=== PATIENT | female | born 1965 | race African-American/Black ===

== ENCOUNTER 2018-05-11 08:29 | Inpatient (IN) ==
[2018-05-11] MEDS ORDERED: ONDANSETRON 4 MG/2 ML VIAL IV STA (09:14)
[2018-05-11] MEDS ORDERED: ALBUTEROL/IPRATROPIUM 3 ML NEB RESP TX STA (09:14)
[2018-05-11] MEDS ORDERED: LOPERAMIDE 2 MG CAPSULE PO STA (09:14)
[2018-05-11] MEDS ORDERED: PANTOPRAZOLE 40 MG VIAL IV STA (09:14)
[2018-05-11] MEDS ORDERED: METOCLOPRAMIDE 10 MG/2 ML VIAL IV STA (09:14)
[2018-05-11 09:52] LABS: Basophils % 0.2 % (0.0-0.8); Eosinophils % 0.1 % (0.00-10.9); Immature Granulocytes % 7.9 %; Immature Granulocytes Absolute 1.19 #; Lymphocytes # 1.3 10*3/uL (1.4-4.0); Lymphocytes % 8.4 % (21.3-54.2); Mean Corpuscular HGB Conc 33.3 GM/DL (32-36); Mean Corpuscular Hemoglobin 29 PG (27-34); Mean Corpuscular Volume 86.5 FL (87-102); Monocytes # 1.7 10*3/uL (0.11-0.8); Monocytes % 10.9 % (1.7-12.7); Neutrophils # 10.9 10*3/uL (1.4-7.4); Neutrophils % 72.5 % (38.7-73.9); Platelet Count 240 T/CUMM (130-400); Red Blood Count 3.47 MC/CUMM (3.8-5.5); Red Cell Distribution Width 17.7 % (9.3-17.3); White Blood Count 15.1 T/CUMM (4-12)
[2018-05-11 10:01] LABS: INR 1.1; PT Patient Result 11.1 SECS; Partial Thromboplastin Time 35.8 SECS (0-40)
[2018-05-11 10:14] LABS: Lactic Acid 1.2 MMOL/L (0.4-2.0)
[2018-05-11 10:17] LABS: Alanine Aminotransferase 15 U/L (13-56); Albumin 2.1 G/DL (3.4-5.0); Alkaline Phosphatase 129 U/L (45-117); Amylase 122 U/L (25-115); Aspartate Amino Transferase 36 U/L (0-37); Blood Urea Nitrogen 25 MG/DL (7-18); Calcium 7.6 MG/DL (8.5-10.1); Glucose 89 MG/DL (74-106); Osmolality,Calculated 268.4 MOS/KG (273-304); Potassium 3.6 MMOL/L (3.5-5.1); Sodium 133 MMOL/L (136-145); Total Protein 7.2 G/DL (6.4-8.3)
[2018-05-11 10:21] LABS: Troponin I 0.103 NG/ML (0.00-0.045)
[2018-05-11] MEDS ORDERED: MEROPENEM 1,000 MG in SODIUM CHLORIDE 0.9% 100 ML IV STA (10:26)
[2018-05-11] MEDS ORDERED: NITROGLYCERIN 2% OINT 1 INCH/GM PACK TOP STA (10:26)
[2018-05-11] MEDS ORDERED: ASPIRIN 325 MG TABLET PO STA (10:26)
[2018-05-11] MEDS ORDERED: methylPREDNISolone SOD SUC 125 MG/2 ML VIAL IV STA (10:26)
[2018-05-11 10:31] LABS: Hypochromasia 1+; Lymphocytes 11 % (20-55); Myelocytes 2 %; Segmented Neutrophils 74 % (50-85); Total Cells Counted 100
[2018-05-11 10:32] LABS: Microcytosis 1+; Target Cells Slight
[2018-05-11 10:33] LABS: Anisocytosis 1+; Platelet Estimate Normal; Polychromasia Slight
[2018-05-11] MEDS ORDERED: ONDANSETRON 4 MG/2 ML VIAL IV PRN (11:22)
[2018-05-11] MEDS ORDERED: ACETAMINOPHEN 325 MG TABLET PO PRN (11:22)
[2018-05-11] MEDS ORDERED: PROMETHAZINE 25 MG/1 ML VIAL IM PRN (11:22)
[2018-05-11] MEDS ORDERED: POTASSIUM CHLORIDE 20 MEQ TABLET PO PRN (12:04)
[2018-05-11] MEDS ORDERED: INFLUENZA VIRUS VACCINE 0.5 ML SYRINGE IM ONE (13:00)
[2018-05-11] MEDS: ALBUTEROL/IPRATROPIUM 3 ML NEB RESP TX SCH ×2 (13:18→19:03)
[2018-05-11 15:02] LABS: Apearance,Urine CLEAR (Clear); Bacteria,Urine Occasional /HPF (Few); Blood, Urine Small mg/dL (Negative); Glucose,Urine (UA) Negative (Negative); Ketones,Urine Negative (Negative); Mucus,Urine Occasional /LPF (Occasional); Nitrite,Urine Negative (Negative); Protein,Urine 30 MG/DL; Squamous Epithelial Cell,Urine Occasional /HPF (0-10); Transitional Epi Cells,Urine Occasional /HPF (<1); Urine Color Amber (Yellow); Urine Specific Gravity 1.013 (1.001-1.035); WBC,Urine 3 /HPF (0-6)
[2018-05-11 15:03] LABS: Bilirubin,Urine Small mg/dL (Negative)
[2018-05-11] MEDS: SODIUM CHLORIDE 0.9% 1,000 ML IV SCH (15:10)
[2018-05-11] MEDS: CARVEDILOL 3.125 MG TABLET PO SCH (21:16)
[2018-05-12] MEDS: ALBUTEROL/IPRATROPIUM 3 ML NEB RESP TX SCH ×4 (01:49→19:39)
[2018-05-12] MEDS: SODIUM CHLORIDE 0.9% 1,000 ML IV SCH (04:30)
[2018-05-12 05:26] LABS: Basophils % 0.1 % (0.0-0.8); Hematocrit 24.6 VOL% (35.7-47.0); Hemoglobin 8.3 GM/DL (12.0-16.0); Immature Granulocytes % 8.3 %; Immature Granulocytes Absolute 1.31 #; Lymphocytes # 0.8 10*3/uL (1.4-4.0); Lymphocytes % 5.3 % (21.3-54.2); Mean Corpuscular HGB Conc 33.7 GM/DL (32-36); Mean Corpuscular Hemoglobin 29 PG (27-34); Mean Corpuscular Volume 84.8 FL (87-102); Mean Platelet Volume 13.3 FL (9.6-12.0); Monocytes # 0.5 10*3/uL (0.11-0.8); Neutrophils # 13.2 10*3/uL (1.4-7.4); Neutrophils % 83.3 % (38.7-73.9); Platelet Count 326 T/CUMM (130-400); Red Cell Distribution Width 17.8 % (9.3-17.3); White Blood Count 15.8 T/CUMM (4-12)
[2018-05-12 05:48] LABS: Bilirubin,Total 2.5 MG/DL (0.2-1.0); Calcium 7.4 MG/DL (8.5-10.1); Osmolality,Calculated 276.8 MOS/KG (273-304); Potassium 3.7 MMOL/L (3.5-5.1); Risk Ratio 8.25; Thyroid Stimulating Hormone 0.031 uIU/ml (0.358-3.74); Total Protein 6.6 G/DL (6.4-8.3)
[2018-05-12 05:52] LABS: Band Neutrophils 1 % (0-10); Hypochromasia 1+; Lymphocytes 6 % (20-55); Nucleated Red Blood Cells 1 (0-5); Segmented Neutrophils 86 % (50-85); Total Cells Counted 100
[2018-05-12 05:53] LABS: Anisocytosis 1+; Microcytosis 1+; Platelet Estimate Normal; Target Cells Slight
[2018-05-12] MEDS: RIVAROXABAN 20 MG TABLET PO SCH (09:45)
[2018-05-12] MEDS: CARVEDILOL 3.125 MG TABLET PO SCH ×2 (09:46→16:40)
[2018-05-12] MEDS: SODIUM CHLOR 0.9% KCL 20 MEQ 20 MEQ/1,000 ML BAG IV SCH (15:23)
[2018-05-13] MEDS: ALBUTEROL/IPRATROPIUM 3 ML NEB RESP TX SCH ×4 (01:10→19:08)
[2018-05-13 03:12] LABS: Basophils % 0.2 % (0.0-0.8); Eosinophils % 0.2 % (0.00-10.9); Hematocrit 24.9 VOL% (35.7-47.0); Hemoglobin 8.2 GM/DL (12.0-16.0); Immature Granulocytes % 6.6 %; Immature Granulocytes Absolute 0.99 #; Lymphocytes # 1.6 10*3/uL (1.4-4.0); Lymphocytes % 10.4 % (21.3-54.2); Mean Corpuscular HGB Conc 32.9 GM/DL (32-36); Mean Corpuscular Hemoglobin 29 PG (27-34); Mean Corpuscular Volume 86.5 FL (87-102); Mean Platelet Volume 12.7 FL (9.6-12.0); Monocytes # 1.1 10*3/uL (0.11-0.8); Monocytes % 7.1 % (1.7-12.7); NRBC # 0.04 10*3/uL; Neutrophils # 11.4 10*3/uL (1.4-7.4); Neutrophils % 75.5 % (38.7-73.9); Platelet Count 422 T/CUMM (130-400); Red Blood Count 2.88 MC/CUMM (3.8-5.5); White Blood Count 15.1 T/CUMM (4-12)
[2018-05-13 03:34] LABS: Calcium 7.2 MG/DL (8.5-10.1); Osmolality,Calculated 281.4 MOS/KG (273-304); Potassium 3.1 MMOL/L (3.5-5.1)
[2018-05-13 03:39] LABS: Hypochromasia Slight; Lymphocytes 13 % (20-55); Nucleated Red Blood Cells 1 (0-5); Platelet Estimate Normal; Polychromasia Few; Segmented Neutrophils 84 % (50-85); Total Cells Counted 100
[2018-05-13] MEDS: CARVEDILOL 3.125 MG TABLET PO SCH ×2 (07:30→17:30)
[2018-05-13] MEDS: RIVAROXABAN 20 MG TABLET PO SCH (08:18)
[2018-05-13] MEDS: SODIUM CHLOR 0.9% KCL 20 MEQ 20 MEQ/1,000 ML BAG IV SCH (13:53)
[2018-05-14] MEDS: ALBUTEROL/IPRATROPIUM 3 ML NEB RESP TX SCH ×2 (00:25→07:06)
[2018-05-14 07:30] LABS: Basophils % 0.1 % (0.0-0.8); Eosinophils # 0.1 10*3/uL (0.0-0.87); Eosinophils % 0.8 % (0.00-10.9); Hematocrit 27.3 VOL% (35.7-47.0); Hemoglobin 8.8 GM/DL (12.0-16.0); Immature Granulocytes % 8.2 %; Immature Granulocytes Absolute 1.12 #; Lymphocytes # 1.5 10*3/uL (1.4-4.0); Mean Corpuscular HGB Conc 32.2 GM/DL (32-36); Mean Corpuscular Hemoglobin 29 PG (27-34); Mean Corpuscular Volume 88.6 FL (87-102); Mean Platelet Volume 12.3 FL (9.6-12.0); Monocytes # 1.1 10*3/uL (0.11-0.8); Monocytes % 7.9 % (1.7-12.7); NRBC # 0.05 10*3/uL; Neutrophils # 9.8 10*3/uL (1.4-7.4); Platelet Count 472 T/CUMM (130-400); Red Blood Count 3.08 MC/CUMM (3.8-5.5); Red Cell Distribution Width 18.3 % (9.3-17.3); White Blood Count 13.6 T/CUMM (4-12)
[2018-05-14 07:49] LABS: Calcium 6.8 MG/DL (8.5-10.1); Osmolality,Calculated 282.1 MOS/KG (273-304); Potassium 3.1 MMOL/L (3.5-5.1)
[2018-05-14 07:50] LABS: Band Neutrophils 1 % (0-10); Hypochromasia 1+; Lymphocytes 14 % (20-55); Microcytosis Slight; Platelet Estimate Adequate; Segmented Neutrophils 76 % (50-85); Total Cells Counted 100
[2018-05-14] MEDS: CARVEDILOL 3.125 MG TABLET PO SCH (08:50)
[2018-05-14] MEDS: RIVAROXABAN 20 MG TABLET PO SCH (08:50)
[2018-05-14 10:36] VITALS: BP 123/76
== END 2018-05-14 11:10 | disposition home or self-care (01) | DRG 391 ==
LOC: N.ED 08:29 → N.EDINP 11:21 → N.4E 11:39
PROVIDERS: ADMIT Internal Medicine; ATTEND Internal Medicine

== ENCOUNTER 2018-12-16 11:46 | Inpatient (IN) ==
[2018-12-16] MEDS ORDERED: SODIUM CHLORIDE 0.9% 500 ML IV STA (15:10)
[2018-12-16 15:26] LABS: Basophils # 0.1 10*3/uL (0.0-0.2); Basophils % 0.3 % (0.0-0.8); Hematocrit 30.2 VOL% (35.7-47.0); Hemoglobin 9.4 GM/DL (12.0-16.0); Immature Granulocytes % 5.7 %; Immature Granulocytes Absolute 0.98 #; Lymphocytes # 0.4 10*3/uL (1.4-4.0); Lymphocytes % 2.3 % (21.3-54.2); Mean Corpuscular HGB Conc 31.1 GM/DL (32-36); Mean Corpuscular Volume 93.8 FL (87-102); Mean Platelet Volume 11.6 FL (9.6-12.0); Monocytes % 4.1 % (1.7-12.7); Neutrophils % 87.6 % (38.7-73.9); Platelet Count 357 T/CUMM (130-400); Red Blood Count 3.22 MC/CUMM (3.8-5.5); Red Cell Distribution Width 16.3 % (9.3-17.3); White Blood Count 17.1 T/CUMM (4-12)
[2018-12-16 15:36] LABS: Albumin 2.4 G/DL (3.4-5.0); Bilirubin,Total 1.7 MG/DL (0.2-1.0); Calcium 7.9 MG/DL (8.5-10.1); Osmolality,Calculated 268.5 MOS/KG (273-304); Total Protein 7.3 G/DL (6.4-8.3)
[2018-12-16 15:58] LABS: Band Neutrophils 2 % (0-10); Hypochromasia 1+; Lymphocytes 1 % (20-55); Platelet Estimate Adequate; Segmented Neutrophils 94 % (50-85); Total Cells Counted 100
[2018-12-16] MEDS ORDERED: SODIUM CHLORIDE 0.9% 2,850 ML IV ONE (16:41)
[2018-12-16] MEDS ORDERED: ONDANSETRON 4 MG TABLET PO PRN (16:54)
[2018-12-16] MEDS ORDERED: ALBUTEROL 2.5 MG/3 ML NEB RESP TX PRN (16:54)
[2018-12-16] MEDS ORDERED: diphenhydrAMINE CAP 25 MG CAPSULE PO PRN (16:56)
[2018-12-16] MEDS ORDERED: MORPHINE 4 MG/1 ML VIAL IV PRN (16:56)
[2018-12-16] MEDS: MEROPENEM 1,000 MG in SODIUM CHLORIDE 0.9% 100 ML IV SCH (17:57)
[2018-12-16] MEDS: SODIUM CHLORIDE 0.9% 1,000 ML IV SCH (17:57)
[2018-12-16] MEDS: VANCOMYCIN INJ 1,250 MG in SODIUM CHLORIDE 0.9% 250 ML IV SCH (19:44)
[2018-12-16] MEDS: DOCUSATE SODIUM 100 MG CAPSULE PO SCH (20:58)
[2018-12-16] MEDS: CARVEDILOL 3.125 MG TABLET PO SCH (21:00)
[2018-12-17] MEDS: MEROPENEM 1,000 MG in SODIUM CHLORIDE 0.9% 100 ML IV SCH ×3 (01:48→16:48)
[2018-12-17 03:43] LABS: Apearance,Urine CLOUDY (Clear); Bacteria,Urine Occasional /HPF (Few); Bilirubin,Urine Negative (Negative); Blood, Urine Moderate mg/dL (Negative); Glucose,Urine (UA) Negative (Negative); Ketones,Urine Negative (Negative); Mucus,Urine Occasional /LPF (Occasional); Nitrite,Urine Negative (Negative); Protein,Urine Negative; RBC,Urine 9 /HPF (0-4); Squamous Epithelial Cell,Urine Occasional /HPF (0-10); Urine Color Yellow (Yellow); Urine Specific Gravity 1.011 (1.001-1.035); WBC,Urine 1 /HPF (0-6)
[2018-12-17 05:08] LABS: Basophils % 0.2 % (0.0-0.8); Eosinophils % 0.2 % (0.00-10.9); Hemoglobin 8.3 GM/DL (12.0-16.0); Immature Granulocytes % 3.2 %; Immature Granulocytes Absolute 0.53 #; Lymphocytes # 2.3 10*3/uL (1.4-4.0); Lymphocytes % 13.6 % (21.3-54.2); Mean Corpuscular HGB Conc 30.7 GM/DL (32-36); Mean Corpuscular Volume 94.4 FL (87-102); Mean Platelet Volume 11.7 FL (9.6-12.0); Neutrophils % 74.8 % (38.7-73.9); Platelet Count 341 T/CUMM (130-400); Red Blood Count 2.86 MC/CUMM (3.8-5.5); Red Cell Distribution Width 16.3 % (9.3-17.3); White Blood Count 16.6 T/CUMM (4-12)
[2018-12-17 05:32] LABS: Band Neutrophils 2 % (0-10); Hypochromasia 1+; Lymphocytes 15 % (20-55); Nucleated Red Blood Cells 1 (0-5); Platelet Estimate Adequate; Segmented Neutrophils 76 % (50-85); Total Cells Counted 100
[2018-12-17 05:34] LABS: Bilirubin,Total 1.5 MG/DL (0.2-1.0); Calcium 7.7 MG/DL (8.5-10.1); Osmolality,Calculated 273.8 MOS/KG (273-304); Total Protein 6.4 G/DL (6.4-8.3)
[2018-12-17] MEDS: SODIUM CHLORIDE 0.9% 1,000 ML IV SCH (06:29)
[2018-12-17] MEDS: VANCOMYCIN INJ 1,250 MG in SODIUM CHLORIDE 0.9% 250 ML IV SCH ×2 (06:35→20:34)
[2018-12-17] MEDS ORDERED: ALLOPURINOL 100 MG TABLET PO SCH (09:00)
[2018-12-17] MEDS: SPIRONOLACTONE 25 MG TABLET PO SCH (09:09)
[2018-12-17] MEDS: CARVEDILOL 3.125 MG TABLET PO SCH ×2 (09:10→20:34)
[2018-12-17] MEDS: DOCUSATE SODIUM 100 MG CAPSULE PO SCH ×2 (09:10→20:34)
[2018-12-17] MEDS: RIVAROXABAN 20 MG TABLET PO SCH (09:10)
[2018-12-17] MEDS: guaiFENesin/DM ER 600-30 MG TABLET PO PRN ×2 (09:10→20:35)
[2018-12-17] MEDS: POTASSIUM CHLORIDE RIDER 10 MEQ in PREMIX 1 EACH IV PRN ×3 (13:39→18:22)
[2018-12-17] MEDS: ALLOPURINOL 100 MG TABLET PO SCH (20:34)
[2018-12-18] MEDS: MEROPENEM 1,000 MG in SODIUM CHLORIDE 0.9% 100 ML IV SCH ×3 (01:21→16:00)
[2018-12-18 05:11] LABS: Basophils % 0.5 % (0.0-0.8); Eosinophils # 0.4 10*3/uL (0.0-0.87); Eosinophils % 5.1 % (0.00-10.9); Hematocrit 34.2 VOL% (35.7-47.0); Immature Granulocytes % 1.8 %; Immature Granulocytes Absolute 0.14 #; Lymphocytes # 1.3 10*3/uL (1.4-4.0); Lymphocytes % 16.8 % (21.3-54.2); Mean Corpuscular HGB Conc 32.2 GM/DL (32-36); Mean Corpuscular Volume 88.6 FL (87-102); Mean Platelet Volume 11.2 FL (9.6-12.0); Monocytes % 8.8 % (1.7-12.7); Platelet Count 191 T/CUMM (130-400); Red Blood Count 3.86 MC/CUMM (3.8-5.5); White Blood Count 7.7 T/CUMM (4-12)
[2018-12-18 05:36] LABS: Platelet Estimate Adequate; Polychromasia Few
[2018-12-18 05:47] LABS: Albumin 1.9 G/DL (3.4-5.0); Bilirubin,Total 0.5 MG/DL (0.2-1.0); Total Protein 5.2 G/DL (6.4-8.3)
[2018-12-18] MEDS: VANCOMYCIN INJ 1,250 MG in SODIUM CHLORIDE 0.9% 250 ML IV SCH (09:01)
[2018-12-18] MEDS: FUROSEMIDE 40 MG TABLET PO SCH (09:24)
[2018-12-18] MEDS: DOCUSATE SODIUM 100 MG CAPSULE PO SCH ×2 (09:24→20:21)
[2018-12-18] MEDS: SPIRONOLACTONE 25 MG TABLET PO SCH (09:24)
[2018-12-18] MEDS: RIVAROXABAN 20 MG TABLET PO SCH (09:24)
[2018-12-18] MEDS: VANCOMYCIN INJ 1,000 MG in SODIUM CHLORIDE 0.9% 250 ML IV SCH ×2 (09:25→20:21)
[2018-12-18] MEDS: ALLOPURINOL 100 MG TABLET PO SCH ×2 (09:25→20:21)
[2018-12-18] MEDS: guaiFENesin/DM ER 600-30 MG TABLET PO PRN ×2 (09:25→20:21)
[2018-12-18] MEDS: CARVEDILOL 3.125 MG TABLET PO SCH ×2 (09:27→20:21)
[2018-12-18] MEDS ORDERED: POTASSIUM CHLORIDE 20 MEQ TABLET PO ONE (14:27)
[2018-12-18] MEDS: SODIUM CHLORIDE 0.9% 1,000 ML IV SCH (17:16)
[2018-12-18] MEDS ORDERED: MAGNESIUM SULF RIDER 4 GM in PREMIX 1 EACH IV PRN (18:20)
[2018-12-18] MEDS: MAGNESIUM SULF RIDER 2 GM in PREMIX 1 EACH IV PRN (18:28)
[2018-12-19] MEDS: SODIUM CHLORIDE 0.9% 1,000 ML IV SCH ×4 (00:23→20:28)
[2018-12-19] MEDS: MEROPENEM 1,000 MG in SODIUM CHLORIDE 0.9% 100 ML IV SCH ×3 (00:23→16:08)
[2018-12-19 03:03] LABS: Alanine Aminotransferase < 9 U/L (13-56); Albumin 1.9 G/DL (3.4-5.0); Alkaline Phosphatase 116 U/L (45-117); Aspartate Amino Transferase 7 U/L (0-37); Blood Urea Nitrogen 12 MG/DL (7-18); Calcium 7.5 MG/DL (8.5-10.1); Glucose 82 MG/DL (74-106); Osmolality,Calculated 279.3 MOS/KG (273-304); Total Protein 5.4 G/DL (6.4-8.3)
[2018-12-19 06:08] LABS: Basophils # 0.1 10*3/uL (0.0-0.2); Basophils % 0.5 % (0.0-0.8); Eosinophils # 0.1 10*3/uL (0.0-0.87); Eosinophils % 1.2 % (0.00-10.9); Hematocrit 24.7 VOL% (35.7-47.0); Immature Granulocytes % 9.8 %; Immature Granulocytes Absolute 1.01 #; Lymphocytes # 2.8 10*3/uL (1.4-4.0); Lymphocytes % 27.6 % (21.3-54.2); Mean Corpuscular HGB Conc 30.4 GM/DL (32-36); Mean Corpuscular Volume 96.9 FL (87-102); Mean Platelet Volume 11.2 FL (9.6-12.0); Monocytes % 10.3 % (1.7-12.7); NRBC # 0.02 10*3/uL; Neutrophils % 50.6 % (38.7-73.9); Red Cell Distribution Width 17.4 % (9.3-17.3)
[2018-12-19 06:10] LABS: Hemoglobin 7.5 GM/DL (12.0-16.0); Platelet Count 324 T/CUMM (130-400); Red Blood Count 2.55 MC/CUMM (3.8-5.5); White Blood Count 10.3 T/CUMM (4-12)
[2018-12-19 06:44] LABS: Band Neutrophils 1 % (0-10); Eosinophils 7 % (0-10); Hypochromasia 1+; Lymphocytes 17 % (20-55); Metamyelocytes 4 %; Microcytosis 1+; Platelet Estimate Normal; Segmented Neutrophils 67 % (50-85); Total Cells Counted 100
[2018-12-19 06:45] LABS: Polychromasia Few
[2018-12-19] MEDS ORDERED: SODIUM CHLORIDE 0.9% 1,000 ML IV PRN (07:33)
[2018-12-19] MEDS: VANCOMYCIN INJ 1,000 MG in SODIUM CHLORIDE 0.9% 250 ML IV SCH ×2 (09:19→20:23)
[2018-12-19] MEDS: RIVAROXABAN 20 MG TABLET PO SCH (09:20)
[2018-12-19] MEDS: DOCUSATE SODIUM 100 MG CAPSULE PO SCH ×2 (09:21→20:23)
[2018-12-19] MEDS: SPIRONOLACTONE 25 MG TABLET PO SCH (09:21)
[2018-12-19] MEDS: CARVEDILOL 3.125 MG TABLET PO SCH ×2 (09:21→20:23)
[2018-12-19] MEDS: FUROSEMIDE 40 MG TABLET PO SCH (09:21)
[2018-12-19] MEDS: ALLOPURINOL 100 MG TABLET PO SCH ×2 (09:21→20:23)
[2018-12-20] MEDS: MEROPENEM 1,000 MG in SODIUM CHLORIDE 0.9% 100 ML IV SCH ×3 (00:23→16:30)
[2018-12-20] MEDS: SODIUM CHLORIDE 0.9% 1,000 ML IV SCH ×3 (01:29→23:59)
[2018-12-20 05:21] LABS: Basophils % 0.3 % (0.0-0.8); Eosinophils # 0.2 10*3/uL (0.0-0.87); Eosinophils % 2.2 % (0.00-10.9); Hemoglobin 7.2 GM/DL (12.0-16.0); Immature Granulocytes % 9.6 %; Immature Granulocytes Absolute 1.01 #; Lymphocytes # 3.4 10*3/uL (1.4-4.0); Lymphocytes % 32.3 % (21.3-54.2); Mean Corpuscular Volume 96.4 FL (87-102); Mean Platelet Volume 11.3 FL (9.6-12.0); Monocytes % 9.9 % (1.7-12.7); NRBC # 0.05 10*3/uL; Neutrophils % 45.7 % (38.7-73.9); Platelet Count 358 T/CUMM (130-400); Red Blood Count 2.49 MC/CUMM (3.8-5.5); Red Cell Distribution Width 17.3 % (9.3-17.3); White Blood Count 10.5 T/CUMM (4-12)
[2018-12-20 05:34] LABS: Albumin 1.7 G/DL (3.4-5.0); Bilirubin,Total 0.4 MG/DL (0.2-1.0); Osmolality,Calculated 280.1 MOS/KG (273-304); Total Protein 5.2 G/DL (6.4-8.3)
[2018-12-20 05:41] LABS: Eosinophils 1 % (0-10); Lymphocytes 31 % (20-55); Platelet Estimate Adequate; Segmented Neutrophils 55 % (50-85); Total Cells Counted 100
[2018-12-20 05:42] LABS: Hypochromasia 1+; Microcytosis Slight; Ovalocytes Slight
[2018-12-20] MEDS ORDERED: SODIUM CHLORIDE 0.9% 1,000 ML IV PRN (07:19)
[2018-12-20 08:11] LABS: Total Protein 5.3 G/DL (6.4-8.3)
[2018-12-20 08:37] LABS: % Iron Saturation 55.2 % (18-50)
[2018-12-20 09:07] LABS: Folate 4.8 NG/ML (5.4-24.0)
[2018-12-20] MEDS: CARVEDILOL 3.125 MG TABLET PO SCH ×2 (09:54→20:01)
[2018-12-20] MEDS: FUROSEMIDE 40 MG TABLET PO SCH (09:54)
[2018-12-20] MEDS: VANCOMYCIN INJ 1,000 MG in SODIUM CHLORIDE 0.9% 250 ML IV SCH (09:54)
[2018-12-20] MEDS: ALLOPURINOL 100 MG TABLET PO SCH ×2 (09:54→20:01)
[2018-12-20] MEDS: DOCUSATE SODIUM 100 MG CAPSULE PO SCH ×2 (09:54→20:01)
[2018-12-20] MEDS: SPIRONOLACTONE 25 MG TABLET PO SCH (09:59)
[2018-12-20] MEDS: guaiFENesin/DM ER 600-30 MG TABLET PO PRN ×2 (10:13→20:05)
[2018-12-20] MEDS: HYDROCORTISONE 100 MG VIAL IV SCH ×2 (19:12→21:34)
[2018-12-21] MEDS: MEROPENEM 1,000 MG in SODIUM CHLORIDE 0.9% 100 ML IV SCH ×2 (01:03→08:21)
[2018-12-21] MEDS: MAGNESIUM SULF RIDER 2 GM in PREMIX 1 EACH IV PRN (01:36)
[2018-12-21 04:50] LABS: Basophils % 0.4 % (0.0-0.8); Eosinophils % 0.1 % (0.00-10.9); Immature Granulocytes % 10.5 %; Immature Granulocytes Absolute 1.01 #; Lymphocytes # 2.1 10*3/uL (1.4-4.0); Lymphocytes % 21.5 % (21.3-54.2); Mean Corpuscular HGB Conc 31.3 GM/DL (32-36); Mean Corpuscular Volume 93.6 FL (87-102); Mean Platelet Volume 11.3 FL (9.6-12.0); Monocytes % 3.8 % (1.7-12.7); NRBC # 0.05 10*3/uL; Neutrophils % 63.7 % (38.7-73.9); Platelet Count 415 T/CUMM (130-400); Red Blood Count 3.42 MC/CUMM (3.8-5.5); Red Cell Distribution Width 17.6 % (9.3-17.3); White Blood Count 9.6 T/CUMM (4-12)
[2018-12-21 05:15] LABS: Lymphocytes 25 % (20-55); Metamyelocytes 2 %; Platelet Estimate Normal; Polychromasia Few; Segmented Neutrophils 71 % (50-85); Total Cells Counted 100
[2018-12-21 05:17] LABS: Albumin 2.1 G/DL (3.4-5.0); Bilirubin,Total 1.2 MG/DL (0.2-1.0); Calcium 8.7 MG/DL (8.5-10.1); Osmolality,Calculated 279.5 MOS/KG (273-304); Total Protein 6.1 G/DL (6.4-8.3)
[2018-12-21] MEDS: HYDROCORTISONE 100 MG VIAL IV SCH (05:34)
[2018-12-21] MEDS: DOCUSATE SODIUM 100 MG CAPSULE PO SCH (08:18)
[2018-12-21] MEDS: CARVEDILOL 3.125 MG TABLET PO SCH (08:18)
[2018-12-21] MEDS: ALLOPURINOL 100 MG TABLET PO SCH (08:19)
[2018-12-21] MEDS: FUROSEMIDE 40 MG TABLET PO SCH (08:20)
[2018-12-21] MEDS: SODIUM CHLORIDE 0.9% 1,000 ML IV SCH (08:20)
[2018-12-21] MEDS: SPIRONOLACTONE 25 MG TABLET PO SCH (08:20)
[2018-12-21] MEDS: VANCOMYCIN INJ 1,000 MG in SODIUM CHLORIDE 0.9% 250 ML IV SCH ×2 (08:21)
[2018-12-21 08:24] LABS: Immunoglobulin A (Chem) 46 MG/DL (70-400); Immunoglobulin G (Chem) 758 MG/DL (700-1600); Immunoglobulin M (Chem) 30 MG/DL (40-230); Total Protein (Chem) 5.3 G/DL (6.4-8.3)
[2018-12-21] MEDS: guaiFENesin/DM ER 600-30 MG TABLET PO PRN (08:26)
[2018-12-21 08:44] LABS: Albumin (SPE) 2.4 G/DL (3.2-5.3); Albumin (SPE) Rel % 45.4 %; Alpha 1 (SPE) 0.3 G/DL (0.1-0.4); Alpha 1 (SPE) Rel % 6.3 %; Alpha 2 (SPE) 1.1 G/DL (0.4-1.0); Alpha 2 (SPE) Rel % 20.6 %; Beta (SPE) 0.6 G/DL (0.5-1.1); Beta (SPE) Rel % 10.9 %; Gamma (SPE) 0.9 G/DL (0.7-1.7)
[2018-12-21 08:50] LABS: Gamma (SPE) Rel % 16.8 %
[2018-12-21] MEDS ORDERED: FOLIC ACID 1 MG TABLET PO SCH (09:00)
[2018-12-21 09:04] LABS: Immuno Free Light Chain Kappa 0.75 MG/DL (0.33-1.94); Immuno Free Light Chain Lambda 23.62 MG/DL (0.57-2.63); Immuno Free Light Chain Ratio 0.03 MG/DL (0.26-1.65)
[2018-12-21 09:11] VITALS: BP 139/65
[2018-12-21] MEDS ORDERED: HEPARIN LOCK FLUSH 500 UNIT/5 ML SYRINGE IV ONE (10:13)
== END 2018-12-21 10:50 | disposition home or self-care (01) | DRG 872 ==
LOC: N.ED 11:46 → N.EDINP 16:56 → SUATTDRO 16:56 → N.2E 18:45 → N.4E 12-17 10:32
PROVIDERS: ADMIT Internal Medicine; ATTEND Internal Medicine

== ENCOUNTER 2019-04-05 14:48 | Inpatient (IN) ==
[2019-04-05] MEDS ORDERED: ALBUTEROL/IPRATROPIUM 3 ML NEB RESP TX STA (17:26)
[2019-04-05] MEDS ORDERED: PIPERACILLIN/TAZOBACTAM 3,375 MG in SODIUM CHLORIDE 0.9% 100 ML IV STA (17:56)
[2019-04-05 17:58] LABS: Basophils % 0.8 % (0.0-0.8); Eosinophils # 0.6 10*3/uL (0.0-0.87); Eosinophils % 16.4 % (0.00-10.9); Hematocrit 33.5 VOL% (35.7-47.0); Hemoglobin 10.6 GM/DL (12.0-16.0); Immature Granulocytes % 1.9 %; Immature Granulocytes Absolute 0.07 #; Lymphocytes # 1.2 10*3/uL (1.4-4.0); Lymphocytes % 32.2 % (21.3-54.2); Mean Corpuscular HGB Conc 31.6 GM/DL (32-36); Mean Corpuscular Volume 97.7 FL (87-102); Mean Platelet Volume 10.7 FL (9.6-12.0); Monocytes % 8.1 % (1.7-12.7); Neutrophils % 40.6 % (38.7-73.9); Platelet Count 330 T/CUMM (130-400); Red Blood Count 3.43 MC/CUMM (3.8-5.5); Red Cell Distribution Width 15.3 % (9.3-17.3); White Blood Count 3.6 T/CUMM (4-12)
[2019-04-05 18:12] LABS: Alanine Aminotransferase 12 U/L (13-56); Albumin 2.6 G/DL (3.4-5.0); Alkaline Phosphatase 198 U/L (45-117); Aspartate Amino Transferase 8 U/L (0-37); Bilirubin,Total < 0.39 MG/DL (0.2-1.0); Blood Urea Nitrogen 19 MG/DL (7-18); Calcium 8.4 MG/DL (8.5-10.1); Glucose 94 MG/DL (74-106); Osmolality,Calculated 280.4 MOS/KG (273-304); Total Protein 6.1 G/DL (6.4-8.3)
[2019-04-05 18:25] LABS: Eosinophils 11 % (0-10); Lymphocytes 38 % (20-55); Macrocytosis 1+; Platelet Estimate Adequate; Polychromasia 1+; Segmented Neutrophils 43 % (50-85)
[2019-04-05 18:26] LABS: Total Cells Counted 100
[2019-04-05] MEDS ORDERED: ACETAMINOPHEN 325 MG TABLET PO PRN (20:30)
[2019-04-05] MEDS: SODIUM CHLORIDE 0.9% 1,000 ML IV SCH (22:44)
[2019-04-05] MEDS: BENZONATATE 100 MG CAPSULE PO PRN (23:04)
[2019-04-05] MEDS: ALBUTEROL/IPRATROPIUM 3 ML NEB RESP TX SCH (23:58)
[2019-04-06] MEDS ORDERED: PIPERACILLIN/TAZOBACTAM 3,375 MG in SODIUM CHLORIDE 0.9% 100 ML IV SCH (02:00)
[2019-04-06] MEDS: ALBUTEROL/IPRATROPIUM 3 ML NEB RESP TX SCH ×6 (02:50→23:18)
[2019-04-06 04:42] LABS: Basophils % 0.5 % (0.0-0.8); Eosinophils # 0.5 10*3/uL (0.0-0.87); Eosinophils % 14.6 % (0.00-10.9); Hemoglobin 8.1 GM/DL (12.0-16.0); Immature Granulocytes % 1.9 %; Immature Granulocytes Absolute 0.07 #; Lymphocytes # 1.3 10*3/uL (1.4-4.0); Lymphocytes % 34.9 % (21.3-54.2); Mean Corpuscular HGB Conc 31.2 GM/DL (32-36); Mean Platelet Volume 10.4 FL (9.6-12.0); Monocytes % 9.7 % (1.7-12.7); Neutrophils % 38.4 % (38.7-73.9); Platelet Count 284 T/CUMM (130-400); Red Blood Count 2.68 MC/CUMM (3.8-5.5); Red Cell Distribution Width 15.3 % (9.3-17.3); White Blood Count 3.7 T/CUMM (4-12)
[2019-04-06 05:12] LABS: Band Neutrophils 4 % (0-10); Eosinophils 14 % (0-10); Lymphocytes 38 % (20-55); Segmented Neutrophils 35 % (50-85); Total Cells Counted 100
[2019-04-06 05:13] LABS: Hypochromasia 1+; Ovalocytes Slight; Platelet Estimate Adequate
[2019-04-06 05:15] LABS: Calcium 8.2 MG/DL (8.5-10.1); Osmolality,Calculated 289.7 MOS/KG (273-304); Risk Ratio 2.61; VLDL CHOLESTEROL 14.6 MG/DL
[2019-04-06] MEDS ORDERED: guaiFENesin/DM ER 600-30 MG TABLET PO PRN (08:11)
[2019-04-06] MEDS ORDERED: ALBUTEROL 2.5 MG/3 ML NEB RESP TX PRN (08:11)
[2019-04-06] MEDS ORDERED: POMALIDOMIDE 3 MG PO SCH (09:00)
[2019-04-06] MEDS: DOCUSATE SODIUM 100 MG CAPSULE PO SCH ×2 (09:29→21:32)
[2019-04-06] MEDS: fentaNYL 12 MCG/HR PATCH TRANSDERM SCH (09:29)
[2019-04-06] MEDS: BENZONATATE 100 MG CAPSULE PO PRN (09:29)
[2019-04-06] MEDS: CARVEDILOL 3.125 MG TABLET PO SCH ×2 (09:29→21:32)
[2019-04-06] MEDS: FLUTICASONE 50 MCG NASAL SPRAY 16 GM BOTTLE BOTH NARES SCH ×3 (09:29→21:31)
[2019-04-06] MEDS: AMIODARONE 200 MG TABLET PO SCH (09:29)
[2019-04-06] MEDS: ISOSORBIDE DINITRATE 20 MG TABLET PO SCH ×2 (09:35→22:58)
[2019-04-06] MEDS: FUROSEMIDE 40 MG TABLET PO SCH (09:35)
[2019-04-06] MEDS: ALLOPURINOL 100 MG TABLET PO SCH ×2 (09:35→21:33)
[2019-04-06] MEDS ORDERED: AZITHROMYCIN 250 MG TABLET PO ONE (15:03)
[2019-04-06] MEDS: cefTRIAXone 1,000 MG in SYRINGE 1 EACH IV SCH (16:08)
[2019-04-06] MEDS: guaiFENesin/DM ER 600-30 MG TABLET PO PRN (16:15)
[2019-04-06] MEDS: SODIUM CHLORIDE 0.9% 1,000 ML IV SCH (16:18)
[2019-04-06] MEDS: guaiFENesin/CODEINE 5 ML LIQUID PO PRN (21:32)
[2019-04-06] MEDS ORDERED: LACTULOSE 20 GM/30 ML UDCUP PO ONE (22:07)
[2019-04-07] MEDS: ALBUTEROL/IPRATROPIUM 3 ML NEB RESP TX SCH ×6 (02:59→23:35)
[2019-04-07 04:42] LABS: Basophils % 0.9 % (0.0-0.8); Eosinophils # 0.5 10*3/uL (0.0-0.87); Eosinophils % 15.6 % (0.00-10.9); Hematocrit 24.9 VOL% (35.7-47.0); Hemoglobin 7.7 GM/DL (12.0-16.0); Immature Granulocytes % 2.4 %; Immature Granulocytes Absolute 0.08 #; Lymphocytes % 28.9 % (21.3-54.2); Mean Corpuscular HGB Conc 30.9 GM/DL (32-36); Mean Corpuscular Volume 98.4 FL (87-102); Mean Platelet Volume 10.3 FL (9.6-12.0); Monocytes % 12.1 % (1.7-12.7); Neutrophils % 40.1 % (38.7-73.9); Platelet Count 289 T/CUMM (130-400); Red Blood Count 2.53 MC/CUMM (3.8-5.5); Red Cell Distribution Width 15.5 % (9.3-17.3); White Blood Count 3.4 T/CUMM (4-12)
[2019-04-07 05:09] LABS: Band Neutrophils 2 % (0-10); Eosinophils 26 % (0-10); Hypochromasia 1+; Lymphocytes 31 % (20-55); Platelet Estimate Adequate; Segmented Neutrophils 34 % (50-85); Total Cells Counted 100
[2019-04-07 05:11] LABS: Alanine Aminotransferase < 9 U/L (13-56); Albumin 2.1 G/DL (3.4-5.0); Alkaline Phosphatase 168 U/L (45-117); Aspartate Amino Transferase 5 U/L (0-37); Blood Urea Nitrogen 17 MG/DL (7-18); Glucose 82 MG/DL (74-106); Osmolality,Calculated 288.7 MOS/KG (273-304); Total Protein 5.2 G/DL (6.4-8.3)
[2019-04-07] MEDS ORDERED: PROCHLORPERAZINE 10 MG TABLET PO PRN (07:41)
[2019-04-07] MEDS: CARVEDILOL 3.125 MG TABLET PO SCH ×2 (08:43→21:15)
[2019-04-07] MEDS: DOCUSATE SODIUM 100 MG CAPSULE PO SCH ×2 (08:43→21:15)
[2019-04-07] MEDS: PANTOPRAZOLE 40 MG TABLET PO SCH (08:43)
[2019-04-07] MEDS: FUROSEMIDE 40 MG TABLET PO SCH (08:44)
[2019-04-07] MEDS: ASPIRIN EC 81 MG TABLET PO SCH (08:44)
[2019-04-07] MEDS: ALLOPURINOL 300 MG TABLET PO SCH (08:44)
[2019-04-07] MEDS: AMIODARONE 200 MG TABLET PO SCH (08:44)
[2019-04-07] MEDS: AZITHROMYCIN 250 MG TABLET PO SCH (08:44)
[2019-04-07] MEDS: ISOSORBIDE DINITRATE 20 MG TABLET PO SCH ×2 (08:44→21:15)
[2019-04-07] MEDS: FLUTICASONE 50 MCG NASAL SPRAY 16 GM BOTTLE BOTH NARES SCH (08:47)
[2019-04-07 08:49] LABS: Cancer Antigen 19-9 12.3 U/ML (0-37); Carcinoembryonic Antigen < 0.5 NG/ML (0.0-5.0)
[2019-04-07] MEDS: SPIRONOLACTONE 25 MG TABLET PO SCH (08:53)
[2019-04-07] MEDS ORDERED: DIGOXIN 0.125 MG TABLET PO SCH (09:00)
[2019-04-07] MEDS ORDERED: VANCOMYCIN INJ 1,000 MG in SODIUM CHLORIDE 0.9% 250 ML IV ONE (10:18)
[2019-04-07] MEDS: guaiFENesin/CODEINE 5 ML LIQUID PO PRN ×2 (12:15→21:18)
[2019-04-07] MEDS: LINACLOTIDE 145 MCG CAPSULE PO SCH (12:16)
[2019-04-07] MEDS ORDERED: ZOLEDRONIC ACID 4 MG in PREMIX 1 EACH IV ONE (13:08)
[2019-04-07] MEDS: DIGOXIN 0.125 MG TABLET PO SCH (15:23)
[2019-04-07] MEDS: cefTRIAXone 1,000 MG in SYRINGE 1 EACH IV SCH (15:34)
[2019-04-08] MEDS: ALBUTEROL/IPRATROPIUM 3 ML NEB RESP TX SCH ×5 (03:02→19:17)
[2019-04-08 06:24] LABS: Basophils % 0.7 % (0.0-0.8); Eosinophils # 0.5 10*3/uL (0.0-0.87); Eosinophils % 12.8 % (0.00-10.9); Hematocrit 20.9 VOL% (35.7-47.0); Hemoglobin 6.6 GM/DL (12.0-16.0); Immature Granulocytes % 2.2 %; Immature Granulocytes Absolute 0.09 #; Lymphocytes # 1.4 10*3/uL (1.4-4.0); Lymphocytes % 34.7 % (21.3-54.2); Mean Corpuscular HGB Conc 31.6 GM/DL (32-36); Mean Corpuscular Volume 99.5 FL (87-102); Mean Platelet Volume 10.7 FL (9.6-12.0); Monocytes % 9.6 % (1.7-12.7); Platelet Count 299 T/CUMM (130-400); Red Cell Distribution Width 15.6 % (9.3-17.3); White Blood Count 4.2 T/CUMM (4-12)
[2019-04-08 06:53] LABS: Band Neutrophils 1 % (0-10); Eosinophils 10 % (0-10); Hypochromasia 1+; Lymphocytes 29 % (20-55); Metamyelocytes 1 %; Microcytosis 1+; Platelet Estimate Normal; Polychromasia Few; Segmented Neutrophils 51 % (50-85); Total Cells Counted 100
[2019-04-08 06:54] LABS: Alanine Aminotransferase < 6 U/L (13-56); Albumin 2.1 G/DL (3.4-5.0); Alkaline Phosphatase 159 U/L (45-117); Aspartate Amino Transferase 7 U/L (0-37); Bilirubin,Total < 0.39 MG/DL (0.2-1.0); Blood Urea Nitrogen 15 MG/DL (7-18); Calcium 7.9 MG/DL (8.5-10.1); Glucose 80 MG/DL (74-106); Osmolality,Calculated 285.8 MOS/KG (273-304); Total Protein 5.1 G/DL (6.4-8.3)
[2019-04-08] MEDS ORDERED: MAGNESIUM SULF RIDER 4 GM in PREMIX 1 EACH IV PRN (07:18)
[2019-04-08] MEDS ORDERED: SODIUM CHLORIDE 0.9% 1,000 ML IV PRN (07:18)
[2019-04-08] MEDS ORDERED: POTASSIUM CHLORIDE 20 MEQ TABLET PO ONE (07:18)
[2019-04-08] MEDS: AZITHROMYCIN 250 MG TABLET PO SCH (09:39)
[2019-04-08] MEDS: VANCOMYCIN INJ 1,000 MG in SODIUM CHLORIDE 0.9% 250 ML IV SCH ×2 (09:39→19:44)
[2019-04-08] MEDS: LINACLOTIDE 145 MCG CAPSULE PO SCH (09:39)
[2019-04-08] MEDS: AMIODARONE 200 MG TABLET PO SCH (09:40)
[2019-04-08] MEDS: ALLOPURINOL 300 MG TABLET PO SCH (09:40)
[2019-04-08] MEDS: ASPIRIN EC 81 MG TABLET PO SCH (09:40)
[2019-04-08] MEDS: SPIRONOLACTONE 25 MG TABLET PO SCH (09:40)
[2019-04-08] MEDS: PANTOPRAZOLE 40 MG TABLET PO SCH (09:40)
[2019-04-08] MEDS: DOCUSATE SODIUM 100 MG CAPSULE PO SCH ×2 (09:40→21:49)
[2019-04-08] MEDS: ISOSORBIDE DINITRATE 20 MG TABLET PO SCH ×2 (09:40→21:50)
[2019-04-08] MEDS: FUROSEMIDE 40 MG TABLET PO SCH (09:41)
[2019-04-08] MEDS: FLUTICASONE 50 MCG NASAL SPRAY 16 GM BOTTLE BOTH NARES SCH ×2 (09:41→21:52)
[2019-04-08] MEDS: CARVEDILOL 3.125 MG TABLET PO SCH ×2 (09:41→21:50)
[2019-04-08] MEDS: guaiFENesin/CODEINE 5 ML LIQUID PO PRN ×2 (09:49→16:55)
[2019-04-08] MEDS: DIGOXIN 0.125 MG TABLET PO SCH (13:49)
[2019-04-08] MEDS: cefTRIAXone 1,000 MG in SYRINGE 1 EACH IV SCH (16:11)
[2019-04-08] MEDS: MAGNESIUM SULF RIDER 2 GM in PREMIX 1 EACH IV PRN (18:00)
[2019-04-09] MEDS: ALBUTEROL/IPRATROPIUM 3 ML NEB RESP TX SCH ×7 (00:36→23:56)
[2019-04-09 06:32] LABS: Basophils % 0.8 % (0.0-0.8); Eosinophils # 0.6 10*3/uL (0.0-0.87); Eosinophils % 15.6 % (0.00-10.9); Hematocrit 28.7 VOL% (35.7-47.0); Immature Granulocytes % 1.6 %; Immature Granulocytes Absolute 0.06 #; Lymphocytes # 1.4 10*3/uL (1.4-4.0); Lymphocytes % 35.6 % (21.3-54.2); Mean Corpuscular HGB Conc 31.4 GM/DL (32-36); Mean Corpuscular Volume 96.3 FL (87-102); Mean Platelet Volume 10.2 FL (9.6-12.0); Neutrophils % 37.4 % (38.7-73.9); Platelet Count 290 T/CUMM (130-400); Red Blood Count 2.98 MC/CUMM (3.8-5.5); Red Cell Distribution Width 16.2 % (9.3-17.3); White Blood Count 3.8 T/CUMM (4-12)
[2019-04-09 07:02] LABS: Atypical Lymphocytes Few; Band Neutrophils 1 % (0-10); Eosinophils 17 % (0-10); Hypochromasia 1+; Lymphocytes 41 % (20-55); Segmented Neutrophils 30 % (50-85); Total Cells Counted 100
[2019-04-09 07:03] LABS: Anisocytosis 1+; Microcytosis 1+; Ovalocytes Slight; Platelet Estimate Normal; Tear Drop Cells Slight
[2019-04-09 07:09] LABS: Calcium 7.4 MG/DL (8.5-10.1); Osmolality,Calculated 283.8 MOS/KG (273-304)
[2019-04-09 07:14] LABS: Alanine Aminotransferase < 9 U/L (13-56); Albumin 2.3 G/DL (3.4-5.0); Alkaline Phosphatase 166 U/L (45-117); Aspartate Amino Transferase 7 U/L (0-37); Bilirubin,Total < 0.39 MG/DL (0.2-1.0); Blood Urea Nitrogen 12 MG/DL (7-18); Calcium 7.7 MG/DL (8.5-10.1); Glucose 78 MG/DL (74-106); Osmolality,Calculated 284.8 MOS/KG (273-304); Total Protein 5.2 G/DL (6.4-8.3)
[2019-04-09] MEDS: PANTOPRAZOLE 40 MG TABLET PO SCH (08:27)
[2019-04-09] MEDS: fentaNYL 12 MCG/HR PATCH TRANSDERM SCH (08:27)
[2019-04-09] MEDS: AZITHROMYCIN 250 MG TABLET PO SCH (08:28)
[2019-04-09] MEDS: ISOSORBIDE DINITRATE 20 MG TABLET PO SCH ×2 (08:28→20:33)
[2019-04-09] MEDS: AMIODARONE 200 MG TABLET PO SCH (08:28)
[2019-04-09] MEDS: ASPIRIN EC 81 MG TABLET PO SCH (08:28)
[2019-04-09] MEDS: CARVEDILOL 3.125 MG TABLET PO SCH ×2 (08:28→20:33)
[2019-04-09] MEDS: ALLOPURINOL 300 MG TABLET PO SCH (08:28)
[2019-04-09] MEDS: LINACLOTIDE 145 MCG CAPSULE PO SCH (08:28)
[2019-04-09] MEDS: FUROSEMIDE 40 MG TABLET PO SCH (08:28)
[2019-04-09] MEDS: SPIRONOLACTONE 25 MG TABLET PO SCH (08:28)
[2019-04-09] MEDS: DOCUSATE SODIUM 100 MG CAPSULE PO SCH ×2 (08:28→20:33)
[2019-04-09] MEDS: FLUTICASONE 50 MCG NASAL SPRAY 16 GM BOTTLE BOTH NARES SCH ×2 (08:32→20:34)
[2019-04-09] MEDS: VANCOMYCIN INJ 1,000 MG in SODIUM CHLORIDE 0.9% 250 ML IV SCH ×2 (08:32→20:32)
[2019-04-09] MEDS: LISINOPRIL 2.5 MG TABLET PO SCH ×2 (10:08→20:33)
[2019-04-09] MEDS: DIGOXIN 0.125 MG TABLET PO SCH (12:24)
[2019-04-09] MEDS: guaiFENesin/CODEINE 5 ML LIQUID PO PRN ×2 (12:24→18:16)
[2019-04-09] MEDS: SODIUM CHLORIDE 0.9% 1,000 ML IV SCH ×2 (14:54→14:55)
[2019-04-09] MEDS: cefTRIAXone 1,000 MG in SYRINGE 1 EACH IV SCH (15:56)
[2019-04-10] MEDS: guaiFENesin/CODEINE 5 ML LIQUID PO PRN ×3 (01:40→17:28)
[2019-04-10] MEDS: SODIUM CHLORIDE 0.9% 1,000 ML IV SCH ×2 (04:16→20:18)
[2019-04-10] MEDS: ALBUTEROL/IPRATROPIUM 3 ML NEB RESP TX SCH ×6 (04:17→23:22)
[2019-04-10 05:24] LABS: Basophils # 0.1 10*3/uL (0.0-0.2); Basophils % 1.6 % (0.0-0.8); Eosinophils # 0.8 10*3/uL (0.0-0.87); Eosinophils % 17.9 % (0.00-10.9); Hematocrit 29.6 VOL% (35.7-47.0); Hemoglobin 9.1 GM/DL (12.0-16.0); Immature Granulocytes % 1.6 %; Immature Granulocytes Absolute 0.07 #; Lymphocytes # 1.5 10*3/uL (1.4-4.0); Lymphocytes % 33.4 % (21.3-54.2); Mean Corpuscular HGB Conc 30.7 GM/DL (32-36); Mean Corpuscular Volume 99.7 FL (87-102); Mean Platelet Volume 10.2 FL (9.6-12.0); Monocytes % 9.6 % (1.7-12.7); NRBC # 0.02 10*3/uL; Neutrophils % 35.9 % (38.7-73.9); Platelet Count 302 T/CUMM (130-400); Red Blood Count 2.97 MC/CUMM (3.8-5.5); Red Cell Distribution Width 16.2 % (9.3-17.3); White Blood Count 4.5 T/CUMM (4-12)
[2019-04-10 05:37] LABS: Alanine Aminotransferase 9 U/L (13-56); Albumin 2.2 G/DL (3.4-5.0); Alkaline Phosphatase 157 U/L (45-117); Aspartate Amino Transferase 6 U/L (0-37); Bilirubin,Total < 0.39 MG/DL (0.2-1.0); Blood Urea Nitrogen 12 MG/DL (7-18); Calcium 6.8 MG/DL (8.5-10.1); Glucose 76 MG/DL (74-106); Osmolality,Calculated 281.1 MOS/KG (273-304); Total Protein 5.1 G/DL (6.4-8.3)
[2019-04-10 06:15] LABS: Band Neutrophils 4 % (0-10); Eosinophils 16 % (0-10); Hypochromasia 2+; Lymphocytes 36 % (20-55); Metamyelocytes 3 %; Nucleated Red Blood Cells 1 (0-5); Platelet Estimate Normal; Segmented Neutrophils 34 % (50-85); Total Cells Counted 100
[2019-04-10] MEDS: DOCUSATE SODIUM 100 MG CAPSULE PO SCH ×2 (08:17→20:18)
[2019-04-10] MEDS: SPIRONOLACTONE 25 MG TABLET PO SCH (08:17)
[2019-04-10] MEDS: LISINOPRIL 2.5 MG TABLET PO SCH ×2 (08:17→20:18)
[2019-04-10] MEDS: LINACLOTIDE 145 MCG CAPSULE PO SCH (08:17)
[2019-04-10] MEDS: CARVEDILOL 3.125 MG TABLET PO SCH ×2 (08:17→20:18)
[2019-04-10] MEDS: ISOSORBIDE DINITRATE 20 MG TABLET PO SCH ×2 (08:17→20:18)
[2019-04-10] MEDS: PANTOPRAZOLE 40 MG TABLET PO SCH (08:17)
[2019-04-10] MEDS: ASPIRIN EC 81 MG TABLET PO SCH (08:17)
[2019-04-10] MEDS: AMIODARONE 200 MG TABLET PO SCH (08:17)
[2019-04-10] MEDS: FUROSEMIDE 40 MG TABLET PO SCH (08:17)
[2019-04-10] MEDS: AZITHROMYCIN 250 MG TABLET PO SCH (08:17)
[2019-04-10] MEDS: ALLOPURINOL 300 MG TABLET PO SCH (08:17)
[2019-04-10] MEDS: VANCOMYCIN INJ 1,000 MG in SODIUM CHLORIDE 0.9% 250 ML IV SCH (08:19)
[2019-04-10] MEDS: FLUTICASONE 50 MCG NASAL SPRAY 16 GM BOTTLE BOTH NARES SCH ×2 (08:21→20:20)
[2019-04-10] MEDS: ONDANSETRON 4 MG/2 ML VIAL IV PRN (08:29)
[2019-04-10] MEDS: DIGOXIN 0.125 MG TABLET PO SCH (13:35)
[2019-04-10] MEDS: CEFTAROLINE 600 MG in SODIUM CHLORIDE 0.9% 100 ML IV SCH (17:22)
[2019-04-11] MEDS: guaiFENesin/CODEINE 5 ML LIQUID PO PRN ×2 (00:28→20:28)
[2019-04-11] MEDS: ALBUTEROL/IPRATROPIUM 3 ML NEB RESP TX SCH ×5 (02:54→20:33)
[2019-04-11] MEDS: CEFTAROLINE 600 MG in SODIUM CHLORIDE 0.9% 100 ML IV SCH ×2 (05:29→17:07)
[2019-04-11 05:37] LABS: Basophils # 0.1 10*3/uL (0.0-0.2); Basophils % 1.3 % (0.0-0.8); Eosinophils # 0.8 10*3/uL (0.0-0.87); Eosinophils % 16.6 % (0.00-10.9); Hematocrit 28.9 VOL% (35.7-47.0); Immature Granulocytes % 1.1 %; Immature Granulocytes Absolute 0.05 #; Lymphocytes # 1.7 10*3/uL (1.4-4.0); Mean Corpuscular HGB Conc 31.1 GM/DL (32-36); Mean Platelet Volume 10.5 FL (9.6-12.0); Monocytes % 8.5 % (1.7-12.7); Neutrophils % 36.5 % (38.7-73.9); Platelet Count 308 T/CUMM (130-400); Red Blood Count 2.95 MC/CUMM (3.8-5.5); Red Cell Distribution Width 16.2 % (9.3-17.3); White Blood Count 4.7 T/CUMM (4-12)
[2019-04-11 06:05] LABS: Hypochromasia 1+; Microcytosis Slight; Platelet Estimate Adequate
[2019-04-11 06:06] LABS: Alanine Aminotransferase 9 U/L (13-56); Albumin 2.2 G/DL (3.4-5.0); Alkaline Phosphatase 158 U/L (45-117); Aspartate Amino Transferase 9 U/L (0-37); Bilirubin,Total < 0.39 MG/DL (0.2-1.0); Blood Urea Nitrogen 10 MG/DL (7-18); Calcium 7.1 MG/DL (8.5-10.1); Glucose 77 MG/DL (74-106); Osmolality,Calculated 280.1 MOS/KG (273-304); Total Protein 5.1 G/DL (6.4-8.3)
[2019-04-11] MEDS: LISINOPRIL 2.5 MG TABLET PO SCH ×2 (09:30→20:29)
[2019-04-11] MEDS: LINACLOTIDE 145 MCG CAPSULE PO SCH (09:30)
[2019-04-11] MEDS: FUROSEMIDE 40 MG TABLET PO SCH (09:31)
[2019-04-11] MEDS: ASPIRIN EC 81 MG TABLET PO SCH (09:31)
[2019-04-11] MEDS: DOCUSATE SODIUM 100 MG CAPSULE PO SCH ×2 (09:31→20:28)
[2019-04-11] MEDS: AMIODARONE 200 MG TABLET PO SCH (09:31)
[2019-04-11] MEDS: ISOSORBIDE DINITRATE 20 MG TABLET PO SCH ×2 (09:31→20:26)
[2019-04-11] MEDS: guaiFENesin/DM ER 600-30 MG TABLET PO PRN (09:31)
[2019-04-11] MEDS: AZITHROMYCIN 250 MG TABLET PO SCH (09:31)
[2019-04-11] MEDS: ALLOPURINOL 300 MG TABLET PO SCH (09:31)
[2019-04-11] MEDS: FLUTICASONE 50 MCG NASAL SPRAY 16 GM BOTTLE BOTH NARES SCH ×2 (09:32→20:29)
[2019-04-11] MEDS: SPIRONOLACTONE 25 MG TABLET PO SCH (09:32)
[2019-04-11] MEDS: PANTOPRAZOLE 40 MG TABLET PO SCH (09:32)
[2019-04-11] MEDS: CARVEDILOL 3.125 MG TABLET PO SCH ×2 (09:32→20:28)
[2019-04-11] MEDS: ONDANSETRON 4 MG/2 ML VIAL IV PRN (11:41)
[2019-04-11] MEDS: DIGOXIN 0.125 MG TABLET PO SCH (14:20)
[2019-04-11] MEDS: SODIUM CHLORIDE 0.9% 1,000 ML IV SCH (17:08)
[2019-04-12] MEDS: ALBUTEROL/IPRATROPIUM 3 ML NEB RESP TX SCH ×6 (03:25→19:38)
[2019-04-12] MEDS: CEFTAROLINE 600 MG in SODIUM CHLORIDE 0.9% 100 ML IV SCH ×2 (05:27→16:15)
[2019-04-12 06:59] LABS: Basophils # 0.1 10*3/uL (0.0-0.2); Basophils % 1.4 % (0.0-0.8); Eosinophils # 0.9 10*3/uL (0.0-0.87); Eosinophils % 17.5 % (0.00-10.9); Hematocrit 30.1 VOL% (35.7-47.0); Hemoglobin 9.3 GM/DL (12.0-16.0); Immature Granulocytes % 0.6 %; Immature Granulocytes Absolute 0.03 #; Lymphocytes # 1.6 10*3/uL (1.4-4.0); Lymphocytes % 32.7 % (21.3-54.2); Mean Corpuscular HGB Conc 30.9 GM/DL (32-36); Mean Corpuscular Volume 98.4 FL (87-102); Mean Platelet Volume 10.6 FL (9.6-12.0); Monocytes % 10.8 % (1.7-12.7); Platelet Count 321 T/CUMM (130-400); Red Blood Count 3.06 MC/CUMM (3.8-5.5); Red Cell Distribution Width 16.3 % (9.3-17.3); White Blood Count 4.9 T/CUMM (4-12)
[2019-04-12 07:18] LABS: Eosinophils 22 % (0-10); Hypochromasia 1+; Lymphocytes 34 % (20-55); Platelet Estimate Adequate; Segmented Neutrophils 31 % (50-85); Total Cells Counted 100
[2019-04-12 07:19] LABS: Microcytosis Slight
[2019-04-12 07:26] LABS: Alanine Aminotransferase < 9 U/L (13-56); Albumin 2.3 G/DL (3.4-5.0); Alkaline Phosphatase 161 U/L (45-117); Aspartate Amino Transferase 9 U/L (0-37); Blood Urea Nitrogen 8 MG/DL (7-18); Calcium 7.9 MG/DL (8.5-10.1); Glucose 71 MG/DL (74-106); Total Protein 5.4 G/DL (6.4-8.3)
[2019-04-12] MEDS ORDERED: PROMETHAZINE 25 MG/1 ML VIAL IM ONE (08:00)
[2019-04-12] MEDS ORDERED: LIDOCAINE 1% 20 ML VIAL MISC INJ ONE (08:00)
[2019-04-12] MEDS ORDERED: LIDOCAINE 2% VISCOUS 100 ML BOTTLE SWISH/SPIT ONE (08:00)
[2019-04-12] MEDS ORDERED: LIDOCAINE 2% 20 ML VIAL RESP TX ONE (08:00)
[2019-04-12] MEDS ORDERED: MEPERIDINE 50 MG/1 ML VIAL IM ONE (08:00)
[2019-04-12] MEDS ORDERED: MIDAZOLAM 2 MG/2 ML VIAL IV ONE (08:00)
[2019-04-12] MEDS ORDERED: MIDAZOLAM 2 MG/2 ML VIAL ONE (08:53)
[2019-04-12] MEDS: AZITHROMYCIN 250 MG TABLET PO SCH (11:22)
[2019-04-12] MEDS: CARVEDILOL 3.125 MG TABLET PO SCH ×2 (11:22→21:44)
[2019-04-12] MEDS: ASPIRIN EC 81 MG TABLET PO SCH (11:22)
[2019-04-12] MEDS: fentaNYL 12 MCG/HR PATCH TRANSDERM SCH (11:22)
[2019-04-12] MEDS: PANTOPRAZOLE 40 MG TABLET PO SCH (11:23)
[2019-04-12] MEDS: ISOSORBIDE DINITRATE 20 MG TABLET PO SCH ×2 (11:23→21:44)
[2019-04-12] MEDS: FUROSEMIDE 40 MG TABLET PO SCH (11:23)
[2019-04-12] MEDS: SPIRONOLACTONE 25 MG TABLET PO SCH (11:23)
[2019-04-12] MEDS: ALLOPURINOL 300 MG TABLET PO SCH (11:23)
[2019-04-12] MEDS: AMIODARONE 200 MG TABLET PO SCH (11:23)
[2019-04-12] MEDS: DOCUSATE SODIUM 100 MG CAPSULE PO SCH ×2 (11:24→21:45)
[2019-04-12] MEDS: LISINOPRIL 2.5 MG TABLET PO SCH ×2 (11:24→21:44)
[2019-04-12] MEDS: FLUTICASONE 50 MCG NASAL SPRAY 16 GM BOTTLE BOTH NARES SCH ×2 (11:24→21:50)
[2019-04-12] MEDS: LINACLOTIDE 145 MCG CAPSULE PO SCH (14:18)
[2019-04-12] MEDS: SODIUM CHLORIDE 0.9% 1,000 ML IV SCH (14:19)
[2019-04-12] MEDS: DIGOXIN 0.125 MG TABLET PO SCH (14:19)
[2019-04-13] MEDS: ALBUTEROL/IPRATROPIUM 3 ML NEB RESP TX SCH ×7 (00:28→23:34)
[2019-04-13] MEDS: CEFTAROLINE 600 MG in SODIUM CHLORIDE 0.9% 100 ML IV SCH ×2 (05:11→16:44)
[2019-04-13 06:01] LABS: Basophils # 0.1 10*3/uL (0.0-0.2); Eosinophils # 0.8 10*3/uL (0.0-0.87); Eosinophils % 14.7 % (0.00-10.9); Hematocrit 30.9 VOL% (35.7-47.0); Hemoglobin 9.6 GM/DL (12.0-16.0); Immature Granulocytes % 0.9 %; Immature Granulocytes Absolute 0.05 #; Lymphocytes # 1.9 10*3/uL (1.4-4.0); Lymphocytes % 35.4 % (21.3-54.2); Mean Corpuscular HGB Conc 31.1 GM/DL (32-36); Mean Platelet Volume 10.6 FL (9.6-12.0); Monocytes % 9.7 % (1.7-12.7); Neutrophils % 37.3 % (38.7-73.9); Platelet Count 346 T/CUMM (130-400); Red Blood Count 3.12 MC/CUMM (3.8-5.5); White Blood Count 5.4 T/CUMM (4-12)
[2019-04-13 06:07] LABS: Calcium 8.6 MG/DL (8.5-10.1)
[2019-04-13 06:25] LABS: Eosinophils 12 % (0-10); Lymphocytes 31 % (20-55); Platelet Estimate Normal; Polychromasia Slight; Segmented Neutrophils 47 % (50-85); Total Cells Counted 100
[2019-04-13] MEDS: ALLOPURINOL 300 MG TABLET PO SCH (08:27)
[2019-04-13] MEDS: AZITHROMYCIN 250 MG TABLET PO SCH (08:27)
[2019-04-13] MEDS: ASPIRIN EC 81 MG TABLET PO SCH (08:28)
[2019-04-13] MEDS: CARVEDILOL 3.125 MG TABLET PO SCH ×2 (08:28→20:41)
[2019-04-13] MEDS: AMIODARONE 200 MG TABLET PO SCH (08:28)
[2019-04-13] MEDS: ISOSORBIDE DINITRATE 20 MG TABLET PO SCH ×2 (08:28→20:41)
[2019-04-13] MEDS: SODIUM CHLORIDE 0.9% 1,000 ML IV SCH (08:28)
[2019-04-13] MEDS: PANTOPRAZOLE 40 MG TABLET PO SCH (08:28)
[2019-04-13] MEDS: LISINOPRIL 2.5 MG TABLET PO SCH ×2 (08:28→20:41)
[2019-04-13] MEDS: DOCUSATE SODIUM 100 MG CAPSULE PO SCH ×2 (08:28→20:41)
[2019-04-13] MEDS: FUROSEMIDE 40 MG TABLET PO SCH (08:28)
[2019-04-13] MEDS: SPIRONOLACTONE 25 MG TABLET PO SCH (08:28)
[2019-04-13] MEDS: LINACLOTIDE 145 MCG CAPSULE PO SCH (08:32)
[2019-04-13] MEDS: FLUTICASONE 50 MCG NASAL SPRAY 16 GM BOTTLE BOTH NARES SCH ×2 (08:33→20:41)
[2019-04-13] MEDS: ONDANSETRON 4 MG/2 ML VIAL IV PRN (10:49)
[2019-04-13] MEDS: DIGOXIN 0.125 MG TABLET PO SCH (12:54)
[2019-04-13] MEDS ORDERED: FLUCONAZOLE 150 MG TABLET PO ONE (15:02)
[2019-04-14] MEDS: ALBUTEROL/IPRATROPIUM 3 ML NEB RESP TX SCH ×6 (03:49→23:32)
[2019-04-14] MEDS: CEFTAROLINE 600 MG in SODIUM CHLORIDE 0.9% 100 ML IV SCH ×2 (04:53→16:49)
[2019-04-14 05:08] LABS: Basophils # 0.1 10*3/uL (0.0-0.2); Basophils % 2.4 % (0.0-0.8); Eosinophils # 0.8 10*3/uL (0.0-0.87); Eosinophils % 14.4 % (0.00-10.9); Hematocrit 30.3 VOL% (35.7-47.0); Hemoglobin 9.4 GM/DL (12.0-16.0); Immature Granulocytes % 0.7 %; Immature Granulocytes Absolute 0.04 #; Lymphocytes # 2.1 10*3/uL (1.4-4.0); Mean Corpuscular Volume 97.7 FL (87-102); Mean Platelet Volume 10.1 FL (9.6-12.0); Monocytes % 11.7 % (1.7-12.7); NRBC # 0.02 10*3/uL; Neutrophils % 34.8 % (38.7-73.9); Platelet Count 329 T/CUMM (130-400); Red Cell Distribution Width 16.3 % (9.3-17.3); White Blood Count 5.8 T/CUMM (4-12)
[2019-04-14 05:19] LABS: Calcium 8.2 MG/DL (8.5-10.1)
[2019-04-14 05:30] LABS: Atypical Lymphocytes Few; Band Neutrophils 1 % (0-10); Eosinophils 22 % (0-10); Hypochromasia 1+; Lymphocytes 35 % (20-55); Segmented Neutrophils 32 % (50-85); Total Cells Counted 100
[2019-04-14 05:31] LABS: Anisocytosis 1+; Microcytosis 1+
[2019-04-14 05:32] LABS: Platelet Estimate Normal
[2019-04-14] MEDS: ALLOPURINOL 300 MG TABLET PO SCH (09:25)
[2019-04-14] MEDS: ISOSORBIDE DINITRATE 20 MG TABLET PO SCH ×2 (09:25→20:18)
[2019-04-14] MEDS: LISINOPRIL 2.5 MG TABLET PO SCH ×2 (09:25→20:18)
[2019-04-14] MEDS: LINACLOTIDE 145 MCG CAPSULE PO SCH (09:25)
[2019-04-14] MEDS: ASPIRIN EC 81 MG TABLET PO SCH (09:25)
[2019-04-14] MEDS: FUROSEMIDE 40 MG TABLET PO SCH (09:25)
[2019-04-14] MEDS: AZITHROMYCIN 250 MG TABLET PO SCH (09:25)
[2019-04-14] MEDS: FLUTICASONE 50 MCG NASAL SPRAY 16 GM BOTTLE BOTH NARES SCH ×2 (09:25→20:21)
[2019-04-14] MEDS: PANTOPRAZOLE 40 MG TABLET PO SCH (09:26)
[2019-04-14] MEDS: SPIRONOLACTONE 25 MG TABLET PO SCH (09:26)
[2019-04-14] MEDS: CARVEDILOL 3.125 MG TABLET PO SCH ×2 (09:26→20:19)
[2019-04-14] MEDS: AMIODARONE 200 MG TABLET PO SCH (09:26)
[2019-04-14] MEDS: DOCUSATE SODIUM 100 MG CAPSULE PO SCH ×2 (09:26→20:18)
[2019-04-14] MEDS: MAGNESIUM SULF RIDER 2 GM in PREMIX 1 EACH IV PRN (09:29)
[2019-04-14] MEDS: DIGOXIN 0.125 MG TABLET PO SCH (14:01)
[2019-04-14] MEDS: SODIUM CHLORIDE 0.9% 1,000 ML IV SCH (14:02)
[2019-04-14] MEDS: ONDANSETRON 4 MG/2 ML VIAL IV PRN (16:54)
[2019-04-15] MEDS: SODIUM CHLORIDE 0.9% 1,000 ML IV SCH (01:52)
[2019-04-15] MEDS: ALBUTEROL/IPRATROPIUM 3 ML NEB RESP TX SCH ×3 (04:25→11:05)
[2019-04-15 05:52] LABS: Basophils # 0.2 10*3/uL (0.0-0.2); Basophils % 2.7 % (0.0-0.8); Eosinophils # 0.9 10*3/uL (0.0-0.87); Eosinophils % 12.6 % (0.00-10.9); Hematocrit 32.1 VOL% (35.7-47.0); Hemoglobin 9.7 GM/DL (12.0-16.0); Immature Granulocytes % 0.7 %; Immature Granulocytes Absolute 0.05 #; Lymphocytes # 2.6 10*3/uL (1.4-4.0); Lymphocytes % 38.6 % (21.3-54.2); Mean Corpuscular HGB Conc 30.2 GM/DL (32-36); Mean Corpuscular Volume 102.6 FL (87-102); Mean Platelet Volume 10.8 FL (9.6-12.0); Monocytes % 11.7 % (1.7-12.7); NRBC # 0.02 10*3/uL; Neutrophils % 33.7 % (38.7-73.9); Platelet Count 383 T/CUMM (130-400); Red Blood Count 3.13 MC/CUMM (3.8-5.5); Red Cell Distribution Width 16.7 % (9.3-17.3); White Blood Count 6.7 T/CUMM (4-12)
[2019-04-15] MEDS: CEFTAROLINE 600 MG in SODIUM CHLORIDE 0.9% 100 ML IV SCH (05:59)
[2019-04-15 06:13] LABS: Eosinophils 13 % (0-10); Lymphocytes 41 % (20-55); Platelet Estimate Adequate; Segmented Neutrophils 38 % (50-85); Total Cells Counted 100
[2019-04-15 06:14] LABS: Atypical Lymphocytes Few; Hypochromasia 1+; Microcytosis 1+
[2019-04-15 06:18] LABS: Calcium 8.1 MG/DL (8.5-10.1); Osmolality,Calculated 279.3 MOS/KG (273-304)
[2019-04-15] MEDS: ALLOPURINOL 300 MG TABLET PO SCH (08:20)
[2019-04-15] MEDS: LINACLOTIDE 145 MCG CAPSULE PO SCH (08:20)
[2019-04-15] MEDS: ASPIRIN EC 81 MG TABLET PO SCH (08:20)
[2019-04-15] MEDS: SPIRONOLACTONE 25 MG TABLET PO SCH (08:20)
[2019-04-15] MEDS: LISINOPRIL 2.5 MG TABLET PO SCH (08:20)
[2019-04-15] MEDS: DOCUSATE SODIUM 100 MG CAPSULE PO SCH (08:20)
[2019-04-15] MEDS: CARVEDILOL 3.125 MG TABLET PO SCH (08:21)
[2019-04-15] MEDS: AMIODARONE 200 MG TABLET PO SCH (08:21)
[2019-04-15] MEDS: ISOSORBIDE DINITRATE 20 MG TABLET PO SCH (08:21)
[2019-04-15] MEDS: PANTOPRAZOLE 40 MG TABLET PO SCH (08:21)
[2019-04-15] MEDS: FLUTICASONE 50 MCG NASAL SPRAY 16 GM BOTTLE BOTH NARES SCH (08:23)
[2019-04-15] MEDS: DIGOXIN 0.125 MG TABLET PO SCH (12:28)
[2019-04-15 16:22] VITALS: BP 146/68
== END 2019-04-15 17:53 | disposition home or self-care (01) | DRG 167 ==
LOC: N.ED 14:48 → N.EDINP 20:30 → SUPCPDRO 20:30 → SUATTDRO 20:30 → N.EDINP 22:20 → N.4E 22:25
PROVIDERS: ADMIT Internal Medicine; ATTEND Internal Medicine

== ENCOUNTER 2019-04-21 18:37 | Inpatient (IN) ==
[2019-04-21] MEDS ORDERED: PANTOPRAZOLE 40 MG VIAL IV STA (18:58)
[2019-04-21] MEDS ORDERED: SODIUM CHLORIDE 0.9% 500 ML IV STA (18:58)
[2019-04-21] MEDS ORDERED: ONDANSETRON 4 MG/2 ML VIAL IV STA (18:58)
[2019-04-21] MEDS ORDERED: HYDROmorphone 2 MG/1 ML VIAL IV STA (18:58)
[2019-04-21] MEDS ORDERED: PANTOPRAZOLE 40 MG VIAL IV ONE (18:59)
[2019-04-21] MEDS ORDERED: ONDANSETRON 4 MG/2 ML VIAL ONE (18:59)
[2019-04-21 19:06] LABS: Basophils # 0.1 10*3/uL (0.0-0.2); Basophils % 0.6 % (0.0-0.8); Eosinophils # 0.1 10*3/uL (0.0-0.87); Eosinophils % 1.1 % (0.00-10.9); Hematocrit 34.9 VOL% (35.7-47.0); Hemoglobin 11.2 GM/DL (12.0-16.0); Immature Granulocytes % 1.6 %; Immature Granulocytes Absolute 0.14 #; Lymphocytes # 0.5 10*3/uL (1.4-4.0); Lymphocytes % 5.8 % (21.3-54.2); Mean Corpuscular HGB Conc 32.1 GM/DL (32-36); Mean Corpuscular Volume 96.9 FL (87-102); Mean Platelet Volume 11.9 FL (9.6-12.0); Monocytes % 7.3 % (1.7-12.7); Neutrophils % 83.6 % (38.7-73.9); Platelet Count 290 T/CUMM (130-400); Red Cell Distribution Width 16.5 % (9.3-17.3); White Blood Count 8.9 T/CUMM (4-12)
[2019-04-21 19:20] LABS: Albumin 3.2 G/DL (3.4-5.0); Bilirubin,Total 0.5 MG/DL (0.2-1.0); Calcium 8.1 MG/DL (8.5-10.1); Total Protein 6.1 G/DL (6.4-8.3)
[2019-04-21 20:24] LABS: Apearance,Urine CLEAR (Clear); Bilirubin,Urine Negative (Negative); Blood, Urine Negative (Negative); Glucose,Urine (UA) Negative (Negative); Hyaline Casts,Urine 1 /LPF (0-3); Ketones,Urine Negative (Negative); Mucus,Urine Occasional /LPF (Occasional); Nitrite,Urine Negative (Negative); Protein,Urine Negative; RBC,Urine <1 /HPF (0-4); Squamous Epithelial Cell,Urine Occasional /HPF (0-10); Urine Color Straw (Yellow); Urine Specific Gravity 1.029 (1.001-1.035); Urine Urobilinogen < 2.0 EU/DL (0.2-1.0); WBC,Urine <1 /HPF (0-6)
[2019-04-21] MEDS ORDERED: PANTOPRAZOLE 40 MG VIAL IV SCH (21:11)
[2019-04-21] MEDS ORDERED: DEXTROSE 50% 25 GM/50 ML VIAL IV PRN (21:28)
[2019-04-21] MEDS ORDERED: GLUCAGON 1 MG VIAL IM PRN (21:28)
[2019-04-21] MEDS ORDERED: INFLUENZA VIRUS VACCINE 0.5 ML SYRINGE IM ONE (22:05)
[2019-04-21] MEDS: PIPERACILLIN/TAZOBACTAM 3,375 MG in SODIUM CHLORIDE 0.9% 100 ML IV SCH (22:21)
[2019-04-21 22:29] LABS: Hematocrit 34.8 VOL% (35.7-47.0); Hemoglobin 11.2 GM/DL (12.0-16.0)
[2019-04-21 22:39] LABS: PT Patient Result 10.7 SECS (9.6-12.2); Partial Thromboplastin Time 26.2 SECS (20.8-36.0)
[2019-04-22] MEDS: ONDANSETRON 4 MG/2 ML VIAL IV PRN ×3 (00:30→17:25)
[2019-04-22 01:34] LABS: Basophils # 0.1 10*3/uL (0.0-0.2); Basophils % 1.1 % (0.0-0.8); Eosinophils # 0.4 10*3/uL (0.0-0.87); Eosinophils % 4.8 % (0.00-10.9); Hematocrit 32.1 VOL% (35.7-47.0); Hemoglobin 10.4 GM/DL (12.0-16.0); Immature Granulocytes % 1.2 %; Immature Granulocytes Absolute 0.09 #; Lymphocytes # 0.3 10*3/uL (1.4-4.0); Lymphocytes % 3.4 % (21.3-54.2); Mean Corpuscular HGB Conc 32.4 GM/DL (32-36); Mean Corpuscular Volume 96.4 FL (87-102); Mean Platelet Volume 11.9 FL (9.6-12.0); Monocytes % 6.3 % (1.7-12.7); Neutrophils % 83.2 % (38.7-73.9); Platelet Count 258 T/CUMM (130-400); Red Blood Count 3.33 MC/CUMM (3.8-5.5); Red Cell Distribution Width 16.8 % (9.3-17.3); White Blood Count 7.3 T/CUMM (4-12)
[2019-04-22 01:36] LABS: Hematocrit 31.8 VOL% (35.7-47.0); Hemoglobin 10.4 GM/DL (12.0-16.0)
[2019-04-22 02:05] LABS: Albumin 2.7 G/DL (3.4-5.0); Bilirubin,Direct 0.18 MG/DL (0.0-0.20); Bilirubin,Total 1.2 MG/DL (0.2-1.0); Total Protein 5.7 G/DL (6.4-8.3)
[2019-04-22 02:38] LABS: Eosinophils 2 % (0-10); Hypochromasia Slight; Lymphocytes 2 % (20-55); Platelet Estimate Normal; Polychromasia Few; Segmented Neutrophils 91 % (50-85); Total Cells Counted 100
[2019-04-22] MEDS: PIPERACILLIN/TAZOBACTAM 3,375 MG in SODIUM CHLORIDE 0.9% 100 ML IV SCH ×3 (06:16→21:41)
[2019-04-22] MEDS ORDERED: LACTATED RINGERS 500 ML IV SCH (09:30)
[2019-04-22] MEDS: PANTOPRAZOLE 40 MG VIAL IV SCH ×2 (09:46→21:50)
[2019-04-22] MEDS ORDERED: GLYCOPYRROLATE 0.4 MG/2 ML VIAL ONE (10:00)
[2019-04-22] MEDS ORDERED: SEVOFLURANE 1 UNIT/15 MINUTE INH ONE (10:00)
[2019-04-22] MEDS ORDERED: SUCCINYLCHOLINE 200 MG/10 ML VIAL ONE (10:00)
[2019-04-22] MEDS ORDERED: LIDOCAINE 100 MG/5 ML SYRINGE ONE (10:00)
[2019-04-22] MEDS ORDERED: ONDANSETRON 4 MG/2 ML VIAL ONE (10:00)
[2019-04-22] MEDS ORDERED: ETOMIDATE 20 MG/10 ML VIAL IV ONE (10:00)
[2019-04-22] MEDS ORDERED: PROPOFOL 200 MG/20 ML VIAL IV ONE (10:00)
[2019-04-22 10:46] LABS: Hematocrit 34.1 VOL% (35.7-47.0); Hemoglobin 10.8 GM/DL (12.0-16.0)
[2019-04-22] MEDS ORDERED: ALTEPLASE 2 MG VIAL IV ONE (14:26)
[2019-04-22 16:42] LABS: Hematocrit 32.3 VOL% (35.7-47.0); Hemoglobin 10.2 GM/DL (12.0-16.0)
[2019-04-22] MEDS: LOPERAMIDE 2 MG CAPSULE PO PRN ×2 (17:20→21:41)
[2019-04-22] MEDS ORDERED: HYDROmorphone 2 MG/1 ML VIAL IV ONE (21:02)
[2019-04-23] MEDS: LOPERAMIDE 2 MG CAPSULE PO PRN (02:39)
[2019-04-23 03:11] LABS: Basophils # 0.1 10*3/uL (0.0-0.2); Eosinophils # 0.9 10*3/uL (0.0-0.87); Eosinophils % 19.5 % (0.00-10.9); Hematocrit 31.3 VOL% (35.7-47.0); Hemoglobin 9.5 GM/DL (12.0-16.0); Immature Granulocytes % 0.5 %; Immature Granulocytes Absolute 0.02 #; Lymphocytes # 1.1 10*3/uL (1.4-4.0); Lymphocytes % 24.5 % (21.3-54.2); Mean Corpuscular HGB Conc 30.4 GM/DL (32-36); Mean Platelet Volume 12.2 FL (9.6-12.0); Neutrophils % 46.5 % (38.7-73.9); Platelet Count 223 T/CUMM (130-400); Red Blood Count 3.13 MC/CUMM (3.8-5.5); Red Cell Distribution Width 17.3 % (9.3-17.3); White Blood Count 4.4 T/CUMM (4-12)
[2019-04-23 03:19] LABS: Osmolality,Calculated 292.6 MOS/KG (273-304)
[2019-04-23 04:10] LABS: Eosinophils 21 % (0-10); Lymphocytes 20 % (20-55); Segmented Neutrophils 49 % (50-85); Total Cells Counted 100
[2019-04-23 04:11] LABS: Acanthocytes Few; Anisocytosis 1+; Hypochromasia 1+; Platelet Estimate Adequate; Target Cells Few
[2019-04-23] MEDS: PIPERACILLIN/TAZOBACTAM 3,375 MG in SODIUM CHLORIDE 0.9% 100 ML IV SCH ×3 (06:01→22:25)
[2019-04-23] MEDS: PANTOPRAZOLE 40 MG VIAL IV SCH ×2 (09:57→22:20)
[2019-04-23] MEDS: POTASSIUM CHLORIDE 20 MEQ TABLET PO PRN (14:17)
[2019-04-23] MEDS ORDERED: POTASSIUM CHLORIDE RIDER 10 MEQ in PREMIX 1 EACH IV PRN (15:01)
[2019-04-23] MEDS ORDERED: POTASSIUM CHLORIDE RIDER 20 MEQ in PREMIX 1 EACH IV PRN (15:01)
[2019-04-24] MEDS: PIPERACILLIN/TAZOBACTAM 3,375 MG in SODIUM CHLORIDE 0.9% 100 ML IV SCH ×3 (05:56→22:02)
[2019-04-24] MEDS: PANTOPRAZOLE 40 MG VIAL IV SCH ×2 (09:27→20:27)
[2019-04-24] MEDS: DIGOXIN 0.125 MG TABLET PO SCH (13:59)
[2019-04-25] MEDS: PIPERACILLIN/TAZOBACTAM 3,375 MG in SODIUM CHLORIDE 0.9% 100 ML IV SCH (05:54)
[2019-04-25 08:42] LABS: Albumin 2.4 G/DL (3.4-5.0); Bilirubin,Total 1.1 MG/DL (0.2-1.0); Calcium 8.5 MG/DL (8.5-10.1); Osmolality,Calculated 275.5 MOS/KG (273-304); Total Protein 5.2 G/DL (6.4-8.3)
[2019-04-25] MEDS: PANTOPRAZOLE 40 MG VIAL IV SCH ×2 (09:07→20:56)
[2019-04-25 10:32] LABS: Basophils % 0.7 % (0.0-0.8); Eosinophils % 17.8 % (0.00-10.9); Hematocrit 25.3 VOL% (35.7-47.0); Hemoglobin 8.1 GM/DL (12.0-16.0); Immature Granulocytes % 0.3 %; Immature Granulocytes Absolute 0.02 #; Lymphocytes # 1.5 10*3/uL (1.4-4.0); Lymphocytes % 25.5 % (21.3-54.2); Mean Corpuscular Volume 98.4 FL (87-102); Mean Platelet Volume 12.1 FL (9.6-12.0); Monocytes % 4.4 % (1.7-12.7); Neutrophils % 51.3 % (38.7-73.9); Platelet Count 189 T/CUMM (130-400); Red Blood Count 2.57 MC/CUMM (3.8-5.5); Red Cell Distribution Width 15.9 % (9.3-17.3)
[2019-04-25 10:36] LABS: White Blood Count 5.9 T/CUMM (4-12)
[2019-04-25 10:57] LABS: Eosinophils 21 % (0-10); Hypochromasia 1+; Lymphocytes 23 % (20-55); Platelet Estimate Adequate; Segmented Neutrophils 52 % (50-85); Total Cells Counted 100
[2019-04-25] MEDS ORDERED: POLYETHYLENE GLYCOL POWDER 17 GM PACK PO PRN (13:18)
[2019-04-25] MEDS: DIGOXIN 0.125 MG TABLET PO SCH (13:42)
[2019-04-25] MEDS: POTASSIUM CHLORIDE 20 MEQ TABLET PO PRN (20:56)
[2019-04-26 07:52] LABS: Basophils # 0.1 10*3/uL (0.0-0.2); Basophils % 1.6 % (0.0-0.8); Eosinophils # 1.2 10*3/uL (0.0-0.87); Eosinophils % 25.4 % (0.00-10.9); Hematocrit 26.2 VOL% (35.7-47.0); Hemoglobin 8.5 GM/DL (12.0-16.0); Immature Granulocytes % 0.8 %; Immature Granulocytes Absolute 0.04 #; Lymphocytes # 1.1 10*3/uL (1.4-4.0); Lymphocytes % 23.4 % (21.3-54.2); Mean Corpuscular HGB Conc 32.4 GM/DL (32-36); Mean Corpuscular Volume 96.3 FL (87-102); Mean Platelet Volume 12.4 FL (9.6-12.0); Monocytes % 3.7 % (1.7-12.7); Neutrophils % 45.1 % (38.7-73.9); Platelet Count 206 T/CUMM (130-400); Red Blood Count 2.72 MC/CUMM (3.8-5.5); Red Cell Distribution Width 15.6 % (9.3-17.3); White Blood Count 4.9 T/CUMM (4-12)
[2019-04-26] MEDS ORDERED: LACTATED RINGERS 1,000 ML IV SCH (08:00)
[2019-04-26] MEDS ORDERED: PROCHLORPERAZINE 10 MG TABLET PO PRN (08:05)
[2019-04-26 08:17] LABS: Eosinophils 25 % (0-10); Hypochromasia 1+; Lymphocytes 25 % (20-55); Platelet Estimate Adequate; Segmented Neutrophils 44 % (50-85); Total Cells Counted 100
[2019-04-26 08:35] LABS: Albumin 2.4 G/DL (3.4-5.0); Bilirubin,Total 0.5 MG/DL (0.2-1.0); Calcium 8.5 MG/DL (8.5-10.1); Osmolality,Calculated 277.3 MOS/KG (273-304); Total Protein 5.3 G/DL (6.4-8.3)
[2019-04-26] MEDS: FLUTICASONE 50 MCG NASAL SPRAY 16 GM BOTTLE BOTH NARES SCH ×2 (08:42→20:36)
[2019-04-26] MEDS: PANTOPRAZOLE 40 MG VIAL IV SCH ×2 (08:43→20:33)
[2019-04-26] MEDS ORDERED: ONDANSETRON 4 MG/2 ML VIAL ONE (09:00)
[2019-04-26] MEDS ORDERED: PROPOFOL 200 MG/20 ML VIAL IV ONE (09:00)
[2019-04-26] MEDS ORDERED: fentaNYL 12 MCG/HR PATCH TRANSDERM SCH (09:00)
[2019-04-26] MEDS ORDERED: LIDOCAINE 2% 5 ML VIAL ONE (09:00)
[2019-04-26] MEDS: DOCUSATE SODIUM 100 MG CAPSULE PO SCH ×2 (11:06→20:32)
[2019-04-26] MEDS: CARVEDILOL 3.125 MG TABLET PO SCH ×2 (11:06→20:32)
[2019-04-26] MEDS: ISOSORBIDE DINITRATE 20 MG TABLET PO SCH ×2 (11:07→20:32)
[2019-04-26] MEDS: LISINOPRIL 2.5 MG TABLET PO SCH ×2 (11:07→20:32)
[2019-04-26] MEDS: POMALIDOMIDE 3 MG PO SCH (11:07)
[2019-04-26] MEDS: CEFDINIR 300 MG CAPSULE PO SCH ×2 (11:07→20:32)
[2019-04-26] MEDS ORDERED: ALBUTEROL 2.5 MG/3 ML NEB RESP TX PRN (13:00)
[2019-04-26] MEDS: ALLOPURINOL 300 MG TABLET PO SCH (14:03)
[2019-04-26] MEDS: SPIRONOLACTONE 25 MG TABLET PO SCH (14:03)
[2019-04-26] MEDS: AMIODARONE 200 MG TABLET PO SCH (14:03)
[2019-04-26] MEDS: DIGOXIN 0.125 MG TABLET PO SCH (14:07)
[2019-04-27] MEDS: ONDANSETRON 4 MG/2 ML VIAL IV PRN (03:40)
[2019-04-27 05:03] LABS: Basophils # 0.1 10*3/uL (0.0-0.2); Basophils % 2.1 % (0.0-0.8); Eosinophils # 1.1 10*3/uL (0.0-0.87); Eosinophils % 23.2 % (0.00-10.9); Hematocrit 25.6 VOL% (35.7-47.0); Hemoglobin 8.2 GM/DL (12.0-16.0); Immature Granulocytes % 1.3 %; Immature Granulocytes Absolute 0.06 #; Lymphocytes # 0.9 10*3/uL (1.4-4.0); Lymphocytes % 19.5 % (21.3-54.2); Mean Corpuscular Volume 96.6 FL (87-102); Mean Platelet Volume 12.4 FL (9.6-12.0); Monocytes % 4.3 % (1.7-12.7); Neutrophils % 49.6 % (38.7-73.9); Platelet Count 210 T/CUMM (130-400); Red Blood Count 2.65 MC/CUMM (3.8-5.5); Red Cell Distribution Width 15.6 % (9.3-17.3); White Blood Count 4.7 T/CUMM (4-12)
[2019-04-27 05:34] LABS: Albumin 2.2 G/DL (3.4-5.0); Bilirubin,Total 0.4 MG/DL (0.2-1.0); Calcium 8.2 MG/DL (8.5-10.1); Osmolality,Calculated 278.3 MOS/KG (273-304)
[2019-04-27 05:35] LABS: Eosinophils 18 % (0-10); Lymphocytes 20 % (20-55); Platelet Estimate Adequate; Polychromasia Few; Segmented Neutrophils 60 % (50-85); Total Cells Counted 100
[2019-04-27] MEDS ORDERED: LINACLOTIDE 145 MCG CAPSULE PO SCH (07:30)
[2019-04-27] MEDS: SPIRONOLACTONE 25 MG TABLET PO SCH (09:04)
[2019-04-27] MEDS: PANTOPRAZOLE 40 MG VIAL IV SCH (09:04)
[2019-04-27] MEDS: ISOSORBIDE DINITRATE 20 MG TABLET PO SCH (09:04)
[2019-04-27] MEDS: CEFDINIR 300 MG CAPSULE PO SCH (09:04)
[2019-04-27] MEDS: AMIODARONE 200 MG TABLET PO SCH (09:04)
[2019-04-27] MEDS: DOCUSATE SODIUM 100 MG CAPSULE PO SCH (09:05)
[2019-04-27] MEDS: ALLOPURINOL 300 MG TABLET PO SCH (09:05)
[2019-04-27] MEDS: CARVEDILOL 3.125 MG TABLET PO SCH (09:05)
[2019-04-27] MEDS: POMALIDOMIDE 3 MG PO SCH (09:08)
[2019-04-27] MEDS: FLUTICASONE 50 MCG NASAL SPRAY 16 GM BOTTLE BOTH NARES SCH (09:08)
[2019-04-27] MEDS: LISINOPRIL 2.5 MG TABLET PO SCH (09:10)
[2019-04-27 11:08] VITALS: BP 124/66
[2019-04-27] MEDS ORDERED: HEPARIN LOCK FLUSH 500 UNIT/5 ML SYRINGE IV ONE ×2 (12:46→12:47)
== END 2019-04-27 12:56 | disposition home health service (06) | DRG 369 ==
LOC: EDUNIT# → EDBD → N.ED 18:37 → SUATTDRO 20:52 → N.EDINP 20:52 → N.CC 21:09 → N.4E 04-23 14:46
PROVIDERS: ADMIT Internal Medicine; ATTEND Internal Medicine

== ENCOUNTER 2019-08-10 09:30 | Inpatient (IN) ==
[2019-08-10] MEDS ORDERED: ONDANSETRON 4 MG/2 ML VIAL IV STA (10:06)
[2019-08-10] MEDS ORDERED: LORazepam 2 MG/1 ML VIAL IV STA (10:06)
[2019-08-10] MEDS ORDERED: SODIUM CHLORIDE 0.9% 1,000 ML IV STA (10:06)
[2019-08-10 11:21] LABS: Basophils % 0.8 % (0.0-0.8); Eosinophils # 0.6 10*3/uL (0.0-0.87); Eosinophils % 22.3 % (0.00-10.9); Hematocrit 31.2 VOL% (35.7-47.0); Hemoglobin 10.1 GM/DL (12.0-16.0); Immature Granulocytes % 0.4 %; Immature Granulocytes Absolute 0.01 #; Lymphocytes # 1.1 10*3/uL (1.4-4.0); Lymphocytes % 43.3 % (21.3-54.2); Mean Corpuscular HGB Conc 32.4 GM/DL (32-36); Mean Corpuscular Volume 94.8 FL (87-102); Monocytes % 14.6 % (1.7-12.7); NRBC # 0.02 10*3/uL; Neutrophils % 18.6 % (38.7-73.9); Platelet Count 244 T/CUMM (130-400); Red Blood Count 3.29 MC/CUMM (3.8-5.5); Red Cell Distribution Width 17.6 % (9.3-17.3); White Blood Count 2.5 T/CUMM (4-12)
[2019-08-10 11:26] LABS: Apearance,Urine CLEAR (Clear); Bilirubin,Urine Negative (Negative); Blood, Urine Negative (Negative); Glucose,Urine (UA) Negative (Negative); Ketones,Urine Negative (Negative); Nitrite,Urine Negative (Negative); Protein,Urine Negative; RBC,Urine 1 /HPF (0-4); Squamous Epithelial Cell,Urine Occasional /HPF (0-10); Urine Color Yellow (Yellow); Urine Specific Gravity 1.009 (1.001-1.035); WBC,Urine <1 /HPF (0-6)
[2019-08-10] MEDS ORDERED: AMPICILLIN/SULBACTAM 3,000 MG in SODIUM CHLORIDE 0.9% 100 ML IV STA (11:26)
[2019-08-10 11:38] LABS: Albumin 3.2 G/DL (3.4-5.0); Bilirubin,Total 0.9 MG/DL (0.2-1.0); Calcium 8.8 MG/DL (8.5-10.1); Total Protein 5.9 G/DL (6.4-8.3)
[2019-08-10 11:40] LABS: Eosinophils 21 % (0-10); Lymphocytes 45 % (20-55); Nucleated Red Blood Cells 2 (0-5); Platelet Estimate Adequate; Segmented Neutrophils 18 % (50-85); Total Cells Counted 100
[2019-08-10 11:41] LABS: Atypical Lymphocytes Few; Hypochromasia 1+; Ovalocytes Slight
[2019-08-10] MEDS ORDERED: FILGRASTIM-SNDZ 480 MCG/0.8 ML SYRINGE SUBCUT ONE (13:08)
[2019-08-10] MEDS ORDERED: PROCHLORPERAZINE 10 MG TABLET PO PRN (13:09)
[2019-08-10] MEDS ORDERED: HYDROmorphone 2 MG/1 ML VIAL IV PRN (13:10)
[2019-08-10] MEDS ORDERED: MORPHINE 4 MG/1 ML VIAL IV PRN (13:10)
[2019-08-10] MEDS ORDERED: PROMETHAZINE 25 MG/1 ML VIAL IV PRN (13:10)
[2019-08-10] MEDS ORDERED: MAGNESIUM SULF RIDER 4 GM in PREMIX 1 EACH IV PRN (13:10)
[2019-08-10] MEDS: LEVOFLOXACIN INJ 750 MG in PREMIX 1 EACH IV SCH (14:32)
[2019-08-10] MEDS: DEXTROSE 5% NACL 0.45% 1,000 ML IV SCH (17:20)
[2019-08-10] MEDS: metroNIDAZOLE INJ 500 MG in PREMIX 1 EACH IV SCH ×2 (17:23→23:21)
[2019-08-10] MEDS: ONDANSETRON 4 MG/2 ML VIAL IV PRN (19:33)
[2019-08-10] MEDS: carvediloL 3.125 MG TABLET PO SCH (21:00)
[2019-08-10] MEDS: lisinopriL 2.5 MG TABLET PO SCH (21:00)
[2019-08-10] MEDS: ENOXAPARIN 40 MG/0.4 ML SYRINGE SUBCUT SCH (21:01)
[2019-08-11 05:01] LABS: Basophils % 0.8 % (0.0-0.8); Eosinophils # 0.5 10*3/uL (0.0-0.87); Eosinophils % 17.6 % (0.00-10.9); Hematocrit 28.4 VOL% (35.7-47.0); Immature Granulocytes Absolute 0.13 #; Lymphocytes # 0.8 10*3/uL (1.4-4.0); Lymphocytes % 28.6 % (21.3-54.2); Mean Corpuscular HGB Conc 31.7 GM/DL (32-36); Mean Corpuscular Volume 95.3 FL (87-102); Mean Platelet Volume 12.4 FL (9.6-12.0); Monocytes % 14.9 % (1.7-12.7); Neutrophils % 33.1 % (38.7-73.9); Platelet Count 163 T/CUMM (130-400); Red Blood Count 2.98 MC/CUMM (3.8-5.5); Red Cell Distribution Width 17.9 % (9.3-17.3); White Blood Count 2.6 T/CUMM (4-12)
[2019-08-11] MEDS: metroNIDAZOLE INJ 500 MG in PREMIX 1 EACH IV SCH ×4 (05:15→23:19)
[2019-08-11 05:26] LABS: Albumin 2.7 G/DL (3.4-5.0); Bilirubin,Total 0.9 MG/DL (0.2-1.0); Total Protein 5.2 G/DL (6.4-8.3)
[2019-08-11 05:34] LABS: Band Neutrophils 2 % (0-10); Eosinophils 22 % (0-10); Hypochromasia 1+; Lymphocytes 35 % (20-55); Nucleated Red Blood Cells 2 (0-5); Ovalocytes Slight; Platelet Estimate Adequate; Segmented Neutrophils 25 % (50-85); Total Cells Counted 100
[2019-08-11 05:35] LABS: Atypical Lymphocytes Few
[2019-08-11] MEDS: lisinopriL 2.5 MG TABLET PO SCH ×2 (08:13→20:21)
[2019-08-11] MEDS: carvediloL 3.125 MG TABLET PO SCH ×2 (08:13→20:21)
[2019-08-11] MEDS: AMIODARONE 200 MG TABLET PO SCH (08:13)
[2019-08-11] MEDS: PANTOPRAZOLE 40 MG VIAL IV SCH (08:30)
[2019-08-11] MEDS ORDERED: FUROSEMIDE 40 MG/4 ML VIAL IV ONE (08:33)
[2019-08-11] MEDS: ONDANSETRON 4 MG/2 ML VIAL IV PRN ×2 (08:34→13:49)
[2019-08-11 10:49] LABS: Total Protein 5.1 G/DL (6.4-8.3)
[2019-08-11 11:17] LABS: Immuno Free Light Chain Kappa 0.87 MG/DL (0.33-1.94); Immuno Free Light Chain Ratio 0.27 MG/DL (0.26-1.65)
[2019-08-11] MEDS: FILGRASTIM-SNDZ 300 MCG/0.5 ML SYRINGE SUBCUT SCH (11:26)
[2019-08-11] MEDS: DEXTROSE 5% NACL 0.45% 1,000 ML IV SCH ×2 (13:09→23:22)
[2019-08-11] MEDS: LEVOFLOXACIN INJ 750 MG in PREMIX 1 EACH IV SCH (13:46)
[2019-08-11] MEDS: DIGOXIN 0.125 MG TABLET PO SCH (13:47)
[2019-08-11] MEDS: ENOXAPARIN 40 MG/0.4 ML SYRINGE SUBCUT SCH (20:21)
[2019-08-12 05:28] LABS: Basophils # 0.1 10*3/uL (0.0-0.2); Basophils % 1.1 % (0.0-0.8); Eosinophils # 0.5 10*3/uL (0.0-0.87); Eosinophils % 11.3 % (0.00-10.9); Hematocrit 29.8 VOL% (35.7-47.0); Hemoglobin 9.3 GM/DL (12.0-16.0); Immature Granulocytes % 8.6 %; Immature Granulocytes Absolute 0.39 #; Lymphocytes % 21.1 % (21.3-54.2); Mean Corpuscular HGB Conc 31.2 GM/DL (32-36); Mean Corpuscular Volume 96.4 FL (87-102); Monocytes % 15.7 % (1.7-12.7); Neutrophils % 42.2 % (38.7-73.9); Platelet Count 187 T/CUMM (130-400); Red Blood Count 3.09 MC/CUMM (3.8-5.5); Red Cell Distribution Width 18.1 % (9.3-17.3); White Blood Count 4.5 T/CUMM (4-12)
[2019-08-12] MEDS: ONDANSETRON 4 MG/2 ML VIAL IV PRN ×2 (05:29→16:48)
[2019-08-12 05:54] LABS: Total Protein (Chem) 5.1 G/DL (6.4-8.3)
[2019-08-12 05:55] LABS: Immunoglobulin A (Chem) 91 MG/DL (70-400); Immunoglobulin G (Chem) 350 MG/DL (700-1600); Immunoglobulin M (Chem) 26 MG/DL (40-230)
[2019-08-12 05:55] LABS: Albumin 2.7 G/DL (3.4-5.0); Bilirubin,Total 0.5 MG/DL (0.2-1.0); Calcium 8.2 MG/DL (8.5-10.1); Osmolality,Calculated 277.4 MOS/KG (273-304); Total Protein 5.1 G/DL (6.4-8.3)
[2019-08-12 05:56] LABS: Band Neutrophils 4 % (0-10); Eosinophils 9 % (0-10); Hypochromasia 1+; Lymphocytes 17 % (20-55); Segmented Neutrophils 55 % (50-85); Total Cells Counted 100
[2019-08-12 05:57] LABS: Ovalocytes Few
[2019-08-12 05:58] LABS: Anisocytosis 1+; Microcytosis 1+; Platelet Estimate Adequate; Tear Drop Cells Slight
[2019-08-12] MEDS: metroNIDAZOLE INJ 500 MG in PREMIX 1 EACH IV SCH ×4 (06:17→23:41)
[2019-08-12 07:54] LABS: Albumin (SPE) 3.5 G/DL (3.2-5.3); Albumin (SPE) Rel % 69.5 %; Alpha 1 (SPE) 0.2 G/DL (0.1-0.4); Alpha 1 (SPE) Rel % 3.2 %; Alpha 2 (SPE) 0.7 G/DL (0.4-1.0); Alpha 2 (SPE) Rel % 12.9 %; Beta (SPE) 0.5 G/DL (0.5-1.1); Beta (SPE) Rel % 9.3 %; Gamma (SPE) 0.3 G/DL (0.7-1.7)
[2019-08-12 08:06] LABS: Gamma (SPE) Rel % 5.1 %
[2019-08-12] MEDS ORDERED: POTASSIUM CHLORIDE 20 MEQ TABLET PO ONE (08:18)
[2019-08-12] MEDS ORDERED: FUROSEMIDE 40 MG/4 ML VIAL IV ONE (08:18)
[2019-08-12] MEDS: carvediloL 3.125 MG TABLET PO SCH ×2 (08:59→20:53)
[2019-08-12] MEDS: lisinopriL 2.5 MG TABLET PO SCH ×2 (09:00→20:52)
[2019-08-12] MEDS: FILGRASTIM-SNDZ 300 MCG/0.5 ML SYRINGE SUBCUT SCH (09:00)
[2019-08-12] MEDS: PANTOPRAZOLE 40 MG VIAL IV SCH (09:00)
[2019-08-12] MEDS: AMIODARONE 200 MG TABLET PO SCH (09:00)
[2019-08-12] MEDS: LEVOFLOXACIN INJ 750 MG in PREMIX 1 EACH IV SCH (13:40)
[2019-08-12] MEDS: DIGOXIN 0.125 MG TABLET PO SCH (13:48)
[2019-08-12] MEDS: MAGNESIUM SULF RIDER 2 GM in PREMIX 1 EACH IV PRN (15:10)
[2019-08-12] MEDS: ENOXAPARIN 40 MG/0.4 ML SYRINGE SUBCUT SCH (20:52)
[2019-08-13] MEDS: DEXTROSE 5% NACL 0.45% 1,000 ML IV SCH (02:01)
[2019-08-13] MEDS: metroNIDAZOLE INJ 500 MG in PREMIX 1 EACH IV SCH ×4 (05:51→23:34)
[2019-08-13] MEDS: ONDANSETRON 4 MG/2 ML VIAL IV PRN ×3 (06:04→15:39)
[2019-08-13 07:23] LABS: Basophils # 0.1 10*3/uL (0.0-0.2); Eosinophils # 0.8 10*3/uL (0.0-0.87); Eosinophils % 9.1 % (0.00-10.9); Hematocrit 31.4 VOL% (35.7-47.0); Hemoglobin 9.9 GM/DL (12.0-16.0); Immature Granulocytes % 1.2 %; Lymphocytes # 1.3 10*3/uL (1.4-4.0); Lymphocytes % 14.8 % (21.3-54.2); Mean Corpuscular HGB Conc 31.5 GM/DL (32-36); Mean Corpuscular Volume 97.2 FL (87-102); Mean Platelet Volume 11.9 FL (9.6-12.0); Monocytes % 14.2 % (1.7-12.7); Neutrophils % 59.7 % (38.7-73.9); Platelet Count 217 T/CUMM (130-400); Red Blood Count 3.23 MC/CUMM (3.8-5.5); Red Cell Distribution Width 17.9 % (9.3-17.3); White Blood Count 8.7 T/CUMM (4-12)
[2019-08-13 07:50] LABS: Anisocytosis 1+; Band Neutrophils 3 % (0-10); Eosinophils 8 % (0-10); Hypochromasia 2+; Lymphocytes 12 % (20-55); Macrocytosis 1+; Metamyelocytes 1 %; Platelet Estimate Normal; Polychromasia 2+; Segmented Neutrophils 63 % (50-85); Total Cells Counted 100
[2019-08-13 07:51] LABS: Acanthocytes 1+; Albumin 2.9 G/DL (3.4-5.0); Bilirubin,Total 0.8 MG/DL (0.2-1.0); Calcium 8.5 MG/DL (8.5-10.1); Elliptocytes Few; Giant Platelets Few; Osmolality,Calculated 284.7 MOS/KG (273-304); Ovalocytes 2+; Total Protein 5.4 G/DL (6.4-8.3)
[2019-08-13] MEDS: DOCUSATE SODIUM 100 MG CAPSULE PO SCH ×2 (09:13→21:07)
[2019-08-13] MEDS: fentaNYL 12 MCG/HR PATCH TRANSDERM SCH (09:13)
[2019-08-13] MEDS: POLYETHYLENE GLYCOL POWDER 17 GM PACK PO SCH (09:13)
[2019-08-13] MEDS: PANTOPRAZOLE 40 MG VIAL IV SCH (09:13)
[2019-08-13] MEDS: lisinopriL 2.5 MG TABLET PO SCH ×2 (09:13→21:08)
[2019-08-13] MEDS: AMIODARONE 200 MG TABLET PO SCH (09:13)
[2019-08-13] MEDS: carvediloL 3.125 MG TABLET PO SCH ×2 (09:13→21:08)
[2019-08-13] MEDS: DIGOXIN 0.125 MG TABLET PO SCH (14:25)
[2019-08-13] MEDS: LEVOFLOXACIN INJ 750 MG in PREMIX 1 EACH IV SCH (14:39)
[2019-08-13] MEDS: ENOXAPARIN 40 MG/0.4 ML SYRINGE SUBCUT SCH (21:07)
[2019-08-14] MEDS: metroNIDAZOLE INJ 500 MG in PREMIX 1 EACH IV SCH (05:13)
[2019-08-14] MEDS: DEXTROSE 5% NACL 0.45% 1,000 ML IV SCH (05:13)
[2019-08-14 05:42] LABS: Basophils # 0.1 10*3/uL (0.0-0.2); Basophils % 1.3 % (0.0-0.8); Eosinophils # 0.6 10*3/uL (0.0-0.87); Eosinophils % 9.5 % (0.00-10.9); Hematocrit 30.6 VOL% (35.7-47.0); Hemoglobin 9.6 GM/DL (12.0-16.0); Immature Granulocytes % 0.9 %; Immature Granulocytes Absolute 0.06 #; Lymphocytes # 1.3 10*3/uL (1.4-4.0); Lymphocytes % 21.2 % (21.3-54.2); Mean Corpuscular HGB Conc 31.4 GM/DL (32-36); Mean Corpuscular Volume 96.8 FL (87-102); Mean Platelet Volume 11.2 FL (9.6-12.0); Neutrophils % 55.1 % (38.7-73.9); Platelet Count 221 T/CUMM (130-400); Red Blood Count 3.16 MC/CUMM (3.8-5.5); Red Cell Distribution Width 18.2 % (9.3-17.3); White Blood Count 6.3 T/CUMM (4-12)
[2019-08-14] MEDS: ONDANSETRON 4 MG/2 ML VIAL IV PRN ×3 (06:03→16:28)
[2019-08-14 06:11] LABS: Alanine Aminotransferase 9 U/L (13-56); Albumin 2.6 G/DL (3.4-5.0); Alkaline Phosphatase 79 U/L (45-117); Aspartate Amino Transferase < 3 U/L (0-37); Blood Urea Nitrogen 5 MG/DL (7-18); Calcium 8.2 MG/DL (8.5-10.1); Estimated Glom Filtration Rate 93 ML/MIN; Glucose 84 MG/DL (74-106); Osmolality,Calculated 285.6 MOS/KG (273-304)
[2019-08-14 06:48] LABS: Eosinophils 5 % (0-10); Hypochromasia 1+; Lymphocytes 25 % (20-55); Ovalocytes Slight; Platelet Estimate Adequate; Segmented Neutrophils 57 % (50-85); Total Cells Counted 100
[2019-08-14 06:49] LABS: Atypical Lymphocytes Few
[2019-08-14] MEDS: lisinopriL 2.5 MG TABLET PO SCH ×2 (09:36→20:21)
[2019-08-14] MEDS: POLYETHYLENE GLYCOL POWDER 17 GM PACK PO SCH (09:36)
[2019-08-14] MEDS: DOCUSATE SODIUM 100 MG CAPSULE PO SCH ×2 (09:36→20:21)
[2019-08-14] MEDS: AMIODARONE 200 MG TABLET PO SCH (09:36)
[2019-08-14] MEDS: carvediloL 3.125 MG TABLET PO SCH ×2 (09:36→20:21)
[2019-08-14] MEDS: metroNIDAZOLE 500 MG TABLET PO SCH ×3 (09:36→20:21)
[2019-08-14] MEDS: PANTOPRAZOLE 40 MG TABLET PO SCH (09:36)
[2019-08-14] MEDS: LEVOFLOXACIN 500 MG TABLET PO SCH (09:36)
[2019-08-14] MEDS ORDERED: FUROSEMIDE 40 MG/4 ML VIAL IV ONE (12:32)
[2019-08-14] MEDS ORDERED: POTASSIUM CHLORIDE 20 MEQ TABLET PO ONE (12:33)
[2019-08-14] MEDS: DIGOXIN 0.125 MG TABLET PO SCH (14:02)
[2019-08-14] MEDS: ENOXAPARIN 40 MG/0.4 ML SYRINGE SUBCUT SCH (20:20)
[2019-08-15 05:49] LABS: Basophils # 0.1 10*3/uL (0.0-0.2); Basophils % 2.5 % (0.0-0.8); Eosinophils # 0.6 10*3/uL (0.0-0.87); Eosinophils % 15.3 % (0.00-10.9); Hematocrit 30.1 VOL% (35.7-47.0); Hemoglobin 9.5 GM/DL (12.0-16.0); Immature Granulocytes % 0.6 %; Immature Granulocytes Absolute 0.02 #; Lymphocytes # 1.3 10*3/uL (1.4-4.0); Lymphocytes % 36.8 % (21.3-54.2); Mean Corpuscular HGB Conc 31.6 GM/DL (32-36); Mean Corpuscular Volume 97.4 FL (87-102); Monocytes % 23.7 % (1.7-12.7); Neutrophils % 21.1 % (38.7-73.9); Platelet Count 222 T/CUMM (130-400); Red Blood Count 3.09 MC/CUMM (3.8-5.5); Red Cell Distribution Width 18.3 % (9.3-17.3); White Blood Count 3.6 T/CUMM (4-12)
[2019-08-15 06:10] LABS: Calcium 8.3 MG/DL (8.5-10.1); Osmolality,Calculated 277.3 MOS/KG (273-304)
[2019-08-15 06:14] LABS: Eosinophils 15 % (0-10); Hypochromasia 1+; Lymphocytes 40 % (20-55); Ovalocytes Slight; Platelet Estimate Adequate; Segmented Neutrophils 25 % (50-85); Total Cells Counted 100
[2019-08-15] MEDS: ONDANSETRON 4 MG/2 ML VIAL IV PRN ×3 (06:14→16:47)
[2019-08-15 06:15] LABS: Atypical Lymphocytes Few
[2019-08-15] MEDS: FILGRASTIM-SNDZ 300 MCG/0.5 ML SYRINGE SUBCUT SCH (09:08)
[2019-08-15] MEDS: PANTOPRAZOLE 40 MG TABLET PO SCH (09:08)
[2019-08-15] MEDS: carvediloL 3.125 MG TABLET PO SCH ×2 (09:09→20:20)
[2019-08-15] MEDS: LEVOFLOXACIN 500 MG TABLET PO SCH (09:09)
[2019-08-15] MEDS: lisinopriL 2.5 MG TABLET PO SCH ×2 (09:09→20:20)
[2019-08-15] MEDS: metroNIDAZOLE 500 MG TABLET PO SCH ×3 (09:09→20:20)
[2019-08-15] MEDS: AMIODARONE 200 MG TABLET PO SCH (09:09)
[2019-08-15] MEDS: DOCUSATE SODIUM 100 MG CAPSULE PO SCH ×2 (09:09→20:20)
[2019-08-15] MEDS ORDERED: FUROSEMIDE 40 MG/4 ML VIAL IV ONE (09:10)
[2019-08-15] MEDS: POLYETHYLENE GLYCOL POWDER 17 GM PACK PO SCH (10:21)
[2019-08-15] MEDS: DIGOXIN 0.125 MG TABLET PO SCH (15:44)
[2019-08-15] MEDS: ENOXAPARIN 40 MG/0.4 ML SYRINGE SUBCUT SCH (20:20)
[2019-08-16 05:53] LABS: Basophils # 0.2 10*3/uL (0.0-0.2); Basophils % 1.7 % (0.0-0.8); Eosinophils # 0.6 10*3/uL (0.0-0.87); Eosinophils % 5.2 % (0.00-10.9); Hematocrit 31.1 VOL% (35.7-47.0); Hemoglobin 9.9 GM/DL (12.0-16.0); Immature Granulocytes % 1.7 %; Lymphocytes # 1.9 10*3/uL (1.4-4.0); Lymphocytes % 15.8 % (21.3-54.2); Mean Corpuscular HGB Conc 31.8 GM/DL (32-36); Mean Corpuscular Volume 96.9 FL (87-102); Monocytes % 20.4 % (1.7-12.7); Neutrophils % 55.2 % (38.7-73.9); Platelet Count 237 T/CUMM (130-400); Red Blood Count 3.21 MC/CUMM (3.8-5.5); Red Cell Distribution Width 18.3 % (9.3-17.3)
[2019-08-16 06:14] LABS: Eosinophils 12 % (0-10); Lymphocytes 19 % (20-55); Platelet Estimate Adequate; Segmented Neutrophils 50 % (50-85); Total Cells Counted 100
[2019-08-16 06:15] LABS: Hypochromasia 1+; Ovalocytes Slight
[2019-08-16] MEDS: ONDANSETRON 4 MG/2 ML VIAL IV PRN (06:26)
[2019-08-16 06:36] LABS: Calcium 8.7 MG/DL (8.5-10.1); Osmolality,Calculated 276.4 MOS/KG (273-304)
[2019-08-16] MEDS: DEXT 5% NACL 0.45% KCL 20 MEQ 20 MEQ/1,000 ML BAG IV SCH ×3 (07:57→18:12)
[2019-08-16] MEDS: MAGNESIUM SULF RIDER 2 GM in PREMIX 1 EACH IV PRN (07:57)
[2019-08-16] MEDS: PANTOPRAZOLE 40 MG TABLET PO SCH ×2 (07:58→09:30)
[2019-08-16] MEDS: POLYETHYLENE GLYCOL POWDER 17 GM PACK PO SCH ×2 (07:58→09:30)
[2019-08-16] MEDS: metroNIDAZOLE 500 MG TABLET PO SCH ×4 (07:58→20:05)
[2019-08-16] MEDS: DOCUSATE SODIUM 100 MG CAPSULE PO SCH ×3 (07:58→20:05)
[2019-08-16] MEDS: AMIODARONE 200 MG TABLET PO SCH ×2 (07:58→09:29)
[2019-08-16] MEDS: carvediloL 3.125 MG TABLET PO SCH ×3 (07:58→20:05)
[2019-08-16] MEDS: LEVOFLOXACIN 500 MG TABLET PO SCH ×2 (07:58→09:30)
[2019-08-16] MEDS: fentaNYL 12 MCG/HR PATCH TRANSDERM SCH (07:59)
[2019-08-16] MEDS: FILGRASTIM-SNDZ 300 MCG/0.5 ML SYRINGE SUBCUT SCH (09:30)
[2019-08-16] MEDS: DIGOXIN 0.125 MG TABLET PO SCH (14:37)
[2019-08-16] MEDS: ENOXAPARIN 40 MG/0.4 ML SYRINGE SUBCUT SCH (20:05)
[2019-08-17] MEDS: DEXT 5% NACL 0.45% KCL 20 MEQ 20 MEQ/1,000 ML BAG IV SCH ×3 (02:11→21:01)
[2019-08-17 05:32] LABS: Basophils # 0.1 10*3/uL (0.0-0.2); Basophils % 1.7 % (0.0-0.8); Eosinophils # 0.6 10*3/uL (0.0-0.87); Eosinophils % 7.8 % (0.00-10.9); Hematocrit 30.4 VOL% (35.7-47.0); Hemoglobin 9.5 GM/DL (12.0-16.0); Immature Granulocytes Absolute 0.23 #; Lymphocytes # 1.7 10*3/uL (1.4-4.0); Lymphocytes % 22.6 % (21.3-54.2); Mean Corpuscular HGB Conc 31.3 GM/DL (32-36); Mean Corpuscular Volume 97.1 FL (87-102); Mean Platelet Volume 12.2 FL (9.6-12.0); Monocytes % 16.9 % (1.7-12.7); Platelet Count 230 T/CUMM (130-400); Red Blood Count 3.13 MC/CUMM (3.8-5.5); Red Cell Distribution Width 18.5 % (9.3-17.3); White Blood Count 7.7 T/CUMM (4-12)
[2019-08-17 05:58] LABS: Alanine Aminotransferase 9 U/L (13-56); Albumin 2.5 G/DL (3.4-5.0); Alkaline Phosphatase 80 U/L (45-117); Aspartate Amino Transferase 10 U/L (0-37); Bilirubin,Total < 0.39 MG/DL (0.2-1.0); Blood Urea Nitrogen 10 MG/DL (7-18); Calcium 8.4 MG/DL (8.5-10.1); Estimated Glom Filtration Rate 74 ML/MIN; Glucose 87 MG/DL (74-106); Osmolality,Calculated 278.3 MOS/KG (273-304); Total Protein 4.9 G/DL (6.4-8.3)
[2019-08-17 06:03] LABS: Band Neutrophils 1 % (0-10); Eosinophils 14 % (0-10); Lymphocytes 18 % (20-55); Segmented Neutrophils 54 % (50-85); Total Cells Counted 100
[2019-08-17 06:04] LABS: Burr Cells Slight; Hypochromasia 1+; Ovalocytes Slight; Platelet Estimate Adequate
[2019-08-17] MEDS: LEVOFLOXACIN 500 MG TABLET PO SCH (09:20)
[2019-08-17] MEDS: PANTOPRAZOLE 40 MG TABLET PO SCH (09:20)
[2019-08-17] MEDS: carvediloL 3.125 MG TABLET PO SCH ×2 (09:20→21:01)
[2019-08-17] MEDS: metroNIDAZOLE 500 MG TABLET PO SCH ×3 (09:20→21:01)
[2019-08-17] MEDS: DOCUSATE SODIUM 100 MG CAPSULE PO SCH ×2 (09:20→21:01)
[2019-08-17] MEDS: AMIODARONE 200 MG TABLET PO SCH (09:20)
[2019-08-17] MEDS: FILGRASTIM-SNDZ 300 MCG/0.5 ML SYRINGE SUBCUT SCH (09:20)
[2019-08-17] MEDS: POLYETHYLENE GLYCOL POWDER 17 GM PACK PO SCH (10:11)
[2019-08-17] MEDS: DIGOXIN 0.125 MG TABLET PO SCH (13:38)
[2019-08-17] MEDS: ENOXAPARIN 40 MG/0.4 ML SYRINGE SUBCUT SCH (21:01)
[2019-08-18 06:18] LABS: Alanine Aminotransferase < 9 U/L (13-56); Albumin 2.6 G/DL (3.4-5.0); Alkaline Phosphatase 105 U/L (45-117); Aspartate Amino Transferase 9 U/L (0-37); Blood Urea Nitrogen 8 MG/DL (7-18); Calcium 8.5 MG/DL (8.5-10.1); Estimated Glom Filtration Rate 82 ML/MIN; Glucose 76 MG/DL (74-106); Osmolality,Calculated 277.3 MOS/KG (273-304)
[2019-08-18 08:02] LABS: Basophils # 0.2 10*3/uL (0.0-0.2); Basophils % 1.1 % (0.0-0.8); Eosinophils # 0.6 10*3/uL (0.0-0.87); Eosinophils % 3.1 % (0.00-10.9); Hematocrit 31.8 VOL% (35.7-47.0); Hemoglobin 9.9 GM/DL (12.0-16.0); Immature Granulocytes % 2.2 %; Immature Granulocytes Absolute 0.46 #; Lymphocytes # 2.2 10*3/uL (1.4-4.0); Lymphocytes % 10.7 % (21.3-54.2); Mean Corpuscular HGB Conc 31.1 GM/DL (32-36); Mean Corpuscular Volume 99.7 FL (87-102); Monocytes % 6.5 % (1.7-12.7); Neutrophils % 76.4 % (38.7-73.9); Platelet Count 250 T/CUMM (130-400); Red Blood Count 3.19 MC/CUMM (3.8-5.5); Red Cell Distribution Width 18.7 % (9.3-17.3); White Blood Count 20.8 T/CUMM (4-12)
[2019-08-18 08:23] LABS: Band Neutrophils 1 % (0-10); Eosinophils 1 % (0-10); Hypochromasia Slight; Lymphocytes 10 % (20-55); Ovalocytes Slight; Platelet Estimate Adequate; Segmented Neutrophils 83 % (50-85); Total Cells Counted 100
[2019-08-18] MEDS ORDERED: DEXAMETHASONE 10 MG/1 ML VIAL IV ONE (08:25)
[2019-08-18] MEDS ORDERED: SODIUM CHLORIDE 0.9% IV ONE (08:26)
[2019-08-18] MEDS ORDERED: GEMCITABINE IV ONE (08:26)
[2019-08-18] MEDS: metroNIDAZOLE 500 MG TABLET PO SCH ×2 (08:27→15:45)
[2019-08-18] MEDS: DOCUSATE SODIUM 100 MG CAPSULE PO SCH (08:27)
[2019-08-18] MEDS: LEVOFLOXACIN 500 MG TABLET PO SCH (08:27)
[2019-08-18] MEDS: PANTOPRAZOLE 40 MG TABLET PO SCH (08:27)
[2019-08-18] MEDS: POLYETHYLENE GLYCOL POWDER 17 GM PACK PO SCH (08:28)
[2019-08-18] MEDS: carvediloL 3.125 MG TABLET PO SCH (08:28)
[2019-08-18] MEDS: AMIODARONE 200 MG TABLET PO SCH (08:28)
[2019-08-18 08:31] LABS: Calcium 8.5 MG/DL (8.5-10.1); Osmolality,Calculated 270.8 MOS/KG (273-304)
[2019-08-18] MEDS: FILGRASTIM-SNDZ 300 MCG/0.5 ML SYRINGE SUBCUT SCH (08:31)
[2019-08-18] MEDS ORDERED: GRANISETRON 1 MG/1 ML VIAL IV SCH (09:00)
[2019-08-18] MEDS ORDERED: FUROSEMIDE 40 MG TABLET PO SCH (09:00)
[2019-08-18] MEDS: DIGOXIN 0.125 MG TABLET PO SCH (13:33)
[2019-08-18 17:03] VITALS: BP 138/69
[2019-08-18] MEDS ORDERED: HEPARIN LOCK FLUSH 500 UNIT/5 ML SYRINGE IV PRN (17:18)
== END 2019-08-18 18:24 | disposition home or self-care (01) | DRG 392 ==
LOC: N.ED 09:30 → SUATTDRO 13:13 → N.EDINP 13:13 → N.4E 16:12
PROVIDERS: ADMIT Internal Medicine Cardiovascular Disease; ATTEND Internal Medicine

== ENCOUNTER 2019-09-26 13:48 | Inpatient (IN) ==
[2019-09-26 15:48] LABS: Basophils % 0.4 % (0.0-0.8); Eosinophils % 0.4 % (0.00-10.9); Hematocrit 34.1 VOL% (35.7-47.0); Hemoglobin 11.2 GM/DL (12.0-16.0); Immature Granulocytes % 1.1 %; Immature Granulocytes Absolute 0.06 #; Lymphocytes # 1.2 10*3/uL (1.4-4.0); Lymphocytes % 21.9 % (21.3-54.2); Mean Corpuscular HGB Conc 32.8 GM/DL (32-36); Mean Corpuscular Volume 99.1 FL (87-102); Mean Platelet Volume 12.1 FL (9.6-12.0); Monocytes % 15.2 % (1.7-12.7); NRBC # 0.03 10*3/uL; Platelet Count 148 T/CUMM (130-400); Red Blood Count 3.44 MC/CUMM (3.8-5.5); Red Cell Distribution Width 18.8 % (9.3-17.3); White Blood Count 5.6 T/CUMM (4-12)
[2019-09-26 15:59] LABS: INR 1.1; PT Patient Result 11.4 SECS (9.6-12.2); Partial Thromboplastin Time 25.1 SECS (20.8-36.0)
[2019-09-26] MEDS ORDERED: MORPHINE 4 MG/1 ML VIAL IV ONE (16:14)
[2019-09-26] MEDS ORDERED: ONDANSETRON 4 MG/2 ML VIAL ONE (16:14)
[2019-09-26] MEDS ORDERED: MORPHINE 4 MG/1 ML VIAL ONE (16:14)
[2019-09-26] MEDS ORDERED: ONDANSETRON 4 MG/2 ML VIAL IV ONE (16:15)
[2019-09-26 16:20] LABS: Albumin 2.3 G/DL (3.4-5.0); Calcium 8.7 MG/DL (8.5-10.1); Osmolality,Calculated 279.8 MOS/KG (273-304); Total Protein 5.9 G/DL (6.4-8.3)
[2019-09-26 16:47] LABS: Amorphous Crystals,Urine Occasional /HPF (Few); Apearance,Urine CLOUDY (Clear); Bilirubin,Urine Negative (Negative); Blood, Urine Moderate mg/dL (Negative); Glucose,Urine (UA) Negative (Negative); Ketones,Urine 5 mg/dL (Negative); Nitrite,Urine Negative (Negative); Protein,Urine 100 MG/DL; RBC,Urine 9 /HPF (0-4); Urine Color Amber (Yellow); Urine Specific Gravity 1.026 (1.001-1.035); Urine Urobilinogen < 2.0 EU/DL (0.2-1.0)
[2019-09-26] MEDS ORDERED: SODIUM CHLORIDE 0.9% 1,000 ML IV STA (17:33)
[2019-09-26] MEDS ORDERED: LINACLOTIDE 145 MCG CAPSULE PO PRN (19:02)
[2019-09-26] MEDS ORDERED: PROMETHAZINE 25 MG/1 ML VIAL IM PRN (19:04)
[2019-09-26] MEDS ORDERED: ONDANSETRON 4 MG/2 ML VIAL IV PRN (19:04)
[2019-09-26] MEDS: SODIUM CHLOR 0.45% KCL 20 MEQ 20 MEQ/1,000 ML BAG IV SCH (22:09)
[2019-09-26] MEDS: fentaNYL 12 MCG/HR PATCH TRANSDERM SCH (22:11)
[2019-09-26] MEDS: FLUTICASONE 50 MCG NASAL SPRAY 16 GM BOTTLE BOTH NARES SCH (22:11)
[2019-09-26] MEDS: ENOXAPARIN 30 MG/0.3 ML SYRINGE SUBCUT SCH (22:11)
[2019-09-26] MEDS: DOCUSATE SODIUM 100 MG CAPSULE PO SCH (22:14)
[2019-09-26] MEDS: carvediloL 3.125 MG TABLET PO SCH (22:27)
[2019-09-27 06:02] LABS: Basophils % 0.4 % (0.0-0.8); Eosinophils # 0.1 10*3/uL (0.0-0.87); Eosinophils % 1.1 % (0.00-10.9); Hematocrit 30.2 VOL% (35.7-47.0); Hemoglobin 9.9 GM/DL (12.0-16.0); Immature Granulocytes % 1.3 %; Immature Granulocytes Absolute 0.07 #; Lymphocytes # 1.6 10*3/uL (1.4-4.0); Lymphocytes % 28.4 % (21.3-54.2); Mean Corpuscular HGB Conc 32.8 GM/DL (32-36); Monocytes % 14.4 % (1.7-12.7); Neutrophils % 54.4 % (38.7-73.9); Platelet Count 152 T/CUMM (130-400); Red Blood Count 3.02 MC/CUMM (3.8-5.5); Red Cell Distribution Width 19.1 % (9.3-17.3); White Blood Count 5.5 T/CUMM (4-12)
[2019-09-27] MEDS ORDERED: MORPHINE 4 MG/1 ML VIAL IV ONE (06:19)
[2019-09-27 06:27] LABS: Calcium 7.9 MG/DL (8.5-10.1); Risk Ratio 1.91; Thyroid Stimulating Hormone 1.83 uIU/ml (0.358-3.74); VLDL CHOLESTEROL 20.8 MG/DL
[2019-09-27 06:46] LABS: Lymphocytes 24 % (20-55); Platelet Estimate Adequate; Segmented Neutrophils 58 % (50-85); Total Cells Counted 100
[2019-09-27 06:47] LABS: Hypochromasia 1+; Ovalocytes Slight
[2019-09-27] MEDS ORDERED: FUROSEMIDE 20 MG/2 ML VIAL IV SCH (08:00)
[2019-09-27] MEDS ORDERED: DEXAMETHASONE 4 MG/1 ML VIAL IV SCH (09:00)
[2019-09-27] MEDS: allopurinoL 300 MG TABLET PO SCH (09:23)
[2019-09-27] MEDS: DOCUSATE SODIUM 100 MG CAPSULE PO SCH ×2 (09:25→20:36)
[2019-09-27] MEDS: carvediloL 3.125 MG TABLET PO SCH ×2 (09:25→20:37)
[2019-09-27] MEDS: ASPIRIN EC 81 MG TABLET PO SCH (09:25)
[2019-09-27] MEDS: PANTOPRAZOLE 40 MG TABLET PO SCH (09:25)
[2019-09-27] MEDS: FLUTICASONE 50 MCG NASAL SPRAY 16 GM BOTTLE BOTH NARES SCH ×2 (09:33→20:38)
[2019-09-27] MEDS: SODIUM CHLOR 0.45% KCL 20 MEQ 20 MEQ/1,000 ML BAG IV SCH (09:34)
[2019-09-27] MEDS: DEXAMETHASONE INJ 20 MG in SODIUM CHLORIDE 0.9% 50 ML IV SCH ×2 (09:48→20:37)
[2019-09-27] MEDS: DIGOXIN 0.125 MG TABLET PO SCH (15:12)
[2019-09-27] MEDS ORDERED: SODIUM CHLORIDE 0.9% 1,000 ML IV SCH (15:30)
[2019-09-27] MEDS ORDERED: FUROSEMIDE 20 MG TABLET PO SCH (16:00)
[2019-09-27] MEDS: ENOXAPARIN 30 MG/0.3 ML SYRINGE SUBCUT SCH (20:36)
[2019-09-28 05:37] LABS: Hematocrit 33.2 VOL% (35.7-47.0); Hemoglobin 10.7 GM/DL (12.0-16.0); Immature Granulocytes % 2.2 %; Immature Granulocytes Absolute 0.06 #; Lymphocytes # 0.5 10*3/uL (1.4-4.0); Mean Corpuscular HGB Conc 32.2 GM/DL (32-36); Mean Corpuscular Volume 100.6 FL (87-102); Mean Platelet Volume 11.3 FL (9.6-12.0); Neutrophils % 75.8 % (38.7-73.9); Platelet Count 196 T/CUMM (130-400); Red Cell Distribution Width 18.8 % (9.3-17.3); White Blood Count 2.7 T/CUMM (4-12)
[2019-09-28 05:52] LABS: Calcium 8.1 MG/DL (8.5-10.1); Osmolality,Calculated 278.4 MOS/KG (273-304)
[2019-09-28 06:13] LABS: Band Neutrophils 1 % (0-10); Hypochromasia 1+; Lymphocytes 12 % (20-55); Macrocytosis 1+; Segmented Neutrophils 84 % (50-85); Total Cells Counted 100
[2019-09-28 06:14] LABS: Ovalocytes Slight; Platelet Estimate Adequate
[2019-09-28] MEDS: ASPIRIN EC 81 MG TABLET PO SCH (09:04)
[2019-09-28] MEDS: carvediloL 3.125 MG TABLET PO SCH ×2 (09:05→22:12)
[2019-09-28] MEDS: DOCUSATE SODIUM 100 MG CAPSULE PO SCH ×2 (09:05→22:12)
[2019-09-28] MEDS: allopurinoL 300 MG TABLET PO SCH (09:06)
[2019-09-28] MEDS: PANTOPRAZOLE 40 MG TABLET PO SCH (09:06)
[2019-09-28] MEDS: FLUTICASONE 50 MCG NASAL SPRAY 16 GM BOTTLE BOTH NARES SCH ×2 (09:10→22:12)
[2019-09-28] MEDS: DEXAMETHASONE INJ 20 MG in SODIUM CHLORIDE 0.9% 50 ML IV SCH ×2 (09:36→22:00)
[2019-09-28] MEDS: DOXORUBICIN IV SCH (11:10)
[2019-09-28] MEDS: VINCRISTINE IV SCH (11:10)
[2019-09-28] MEDS: SODIUM CHLORIDE 0.9% IV SCH (11:10)
[2019-09-28] MEDS: DIGOXIN 0.125 MG TABLET PO SCH (13:20)
[2019-09-28] MEDS ORDERED: ALTEPLASE 2 MG VIAL IV ONE ×2 (13:38→17:34)
[2019-09-28] MEDS: ENOXAPARIN 30 MG/0.3 ML SYRINGE SUBCUT SCH (22:12)
[2019-09-29 06:16] LABS: Basophils % 0.2 % (0.0-0.8); Hematocrit 30.5 VOL% (35.7-47.0); Hemoglobin 9.8 GM/DL (12.0-16.0); Immature Granulocytes % 2.4 %; Immature Granulocytes Absolute 0.11 #; Lymphocytes # 0.5 10*3/uL (1.4-4.0); Lymphocytes % 10.3 % (21.3-54.2); Mean Corpuscular HGB Conc 32.1 GM/DL (32-36); Mean Corpuscular Volume 100.7 FL (87-102); Mean Platelet Volume 11.2 FL (9.6-12.0); Monocytes % 5.4 % (1.7-12.7); Neutrophils % 81.7 % (38.7-73.9); Platelet Count 241 T/CUMM (130-400); Red Blood Count 3.03 MC/CUMM (3.8-5.5); Red Cell Distribution Width 19.2 % (9.3-17.3); White Blood Count 4.7 T/CUMM (4-12)
[2019-09-29 06:35] LABS: Albumin 2.1 G/DL (3.4-5.0); Bilirubin,Direct 0.34 MG/DL (0.0-0.20); Bilirubin,Indirect 0.5 MG/DL (0.0-1.0); Bilirubin,Total 0.8 MG/DL (0.2-1.0); Osmolality,Calculated 283.1 MOS/KG (273-304); Total Protein 5.7 G/DL (6.4-8.3)
[2019-09-29 06:44] LABS: Hypochromasia 1+; Lymphocytes 1 % (20-55); Macrocytosis 1+; Platelet Estimate Adequate; Segmented Neutrophils 96 % (50-85); Total Cells Counted 100
[2019-09-29 06:45] LABS: Polychromasia Slight
[2019-09-29] MEDS: PROMETHAZINE INJ 25 MG in SODIUM CHLORIDE 0.9% 50 ML IV PRN ×2 (09:21→21:02)
[2019-09-29] MEDS: DEXAMETHASONE INJ 20 MG in SODIUM CHLORIDE 0.9% 50 ML IV SCH ×2 (10:00→21:01)
[2019-09-29] MEDS: fentaNYL 12 MCG/HR PATCH TRANSDERM SCH (10:01)
[2019-09-29] MEDS: ASPIRIN EC 81 MG TABLET PO SCH (10:15)
[2019-09-29] MEDS: DOCUSATE SODIUM 100 MG CAPSULE PO SCH ×2 (10:15→20:00)
[2019-09-29] MEDS: FLUTICASONE 50 MCG NASAL SPRAY 16 GM BOTTLE BOTH NARES SCH ×2 (10:16→20:00)
[2019-09-29] MEDS: PANTOPRAZOLE 40 MG TABLET PO SCH (10:16)
[2019-09-29] MEDS: carvediloL 3.125 MG TABLET PO SCH ×2 (10:16→20:00)
[2019-09-29] MEDS: allopurinoL 300 MG TABLET PO SCH (10:16)
[2019-09-29] MEDS: DIGOXIN 0.125 MG TABLET PO SCH (16:53)
[2019-09-29] MEDS: ENOXAPARIN 30 MG/0.3 ML SYRINGE SUBCUT SCH (21:00)
[2019-09-29] MEDS: SODIUM CHLORIDE 0.9% IV SCH (21:01)
[2019-09-29] MEDS: DOXORUBICIN IV SCH (21:01)
[2019-09-29] MEDS: VINCRISTINE IV SCH (21:01)
[2019-09-30 04:33] LABS: Basophils % 0.1 % (0.0-0.8); Hematocrit 30.3 VOL% (35.7-47.0); Hemoglobin 9.5 GM/DL (12.0-16.0); Immature Granulocytes % 4.9 %; Immature Granulocytes Absolute 0.37 #; Lymphocytes # 0.7 10*3/uL (1.4-4.0); Lymphocytes % 9.8 % (21.3-54.2); Mean Corpuscular HGB Conc 31.4 GM/DL (32-36); Mean Platelet Volume 11.3 FL (9.6-12.0); Monocytes % 11.1 % (1.7-12.7); Neutrophils % 74.1 % (38.7-73.9); Platelet Count 251 T/CUMM (130-400); Red Blood Count 2.97 MC/CUMM (3.8-5.5); Red Cell Distribution Width 19.6 % (9.3-17.3); White Blood Count 7.6 T/CUMM (4-12)
[2019-09-30 04:56] LABS: Hypochromasia 1+; Lymphocytes 2 % (20-55); Ovalocytes Slight; Platelet Estimate Adequate; Segmented Neutrophils 89 % (50-85); Total Cells Counted 100
[2019-09-30 04:57] LABS: Macrocytosis Slight
[2019-09-30 05:06] LABS: Albumin 2.1 G/DL (3.4-5.0); Bilirubin,Direct 0.51 MG/DL (0.0-0.20); Bilirubin,Indirect 0.6 MG/DL (0.0-1.0); Bilirubin,Total 1.1 MG/DL (0.2-1.0); Calcium 7.8 MG/DL (8.5-10.1); Osmolality,Calculated 290.5 MOS/KG (273-304); Total Protein 5.8 G/DL (6.4-8.3)
[2019-09-30] MEDS: carvediloL 3.125 MG TABLET PO SCH ×2 (10:52→21:03)
[2019-09-30] MEDS: DOCUSATE SODIUM 100 MG CAPSULE PO SCH ×2 (10:52→21:02)
[2019-09-30] MEDS: ASPIRIN EC 81 MG TABLET PO SCH (10:52)
[2019-09-30] MEDS: FLUTICASONE 50 MCG NASAL SPRAY 16 GM BOTTLE BOTH NARES SCH ×2 (10:52→21:03)
[2019-09-30] MEDS: allopurinoL 300 MG TABLET PO SCH (10:53)
[2019-09-30] MEDS: PANTOPRAZOLE 40 MG TABLET PO SCH (10:53)
[2019-09-30] MEDS: DEXAMETHASONE INJ 20 MG in SODIUM CHLORIDE 0.9% 50 ML IV SCH ×2 (11:14→21:27)
[2019-09-30] MEDS: DIGOXIN 0.125 MG TABLET PO SCH (14:57)
[2019-09-30] MEDS: MORPHINE 4 MG/1 ML VIAL IV PRN (18:58)
[2019-09-30] MEDS: VINCRISTINE IV SCH (21:01)
[2019-09-30] MEDS: DOXORUBICIN IV SCH (21:01)
[2019-09-30] MEDS: SODIUM CHLORIDE 0.9% IV SCH (21:01)
[2019-09-30] MEDS: ENOXAPARIN 30 MG/0.3 ML SYRINGE SUBCUT SCH (21:03)
[2019-09-30] MEDS: SODIUM CHLORIDE 0.9% 1,000 ML IV SCH (21:27)
[2019-10-01 04:51] LABS: Basophils % 0.1 % (0.0-0.8); Hematocrit 30.9 VOL% (35.7-47.0); Hemoglobin 9.9 GM/DL (12.0-16.0); Immature Granulocytes Absolute 0.21 #; Lymphocytes # 0.3 10*3/uL (1.4-4.0); Lymphocytes % 4.6 % (21.3-54.2); Mean Platelet Volume 11.3 FL (9.6-12.0); Monocytes % 4.6 % (1.7-12.7); Neutrophils % 87.7 % (38.7-73.9); Platelet Count 262 T/CUMM (130-400); Red Blood Count 3.06 MC/CUMM (3.8-5.5); Red Cell Distribution Width 19.5 % (9.3-17.3); White Blood Count 6.9 T/CUMM (4-12)
[2019-10-01 05:10] LABS: Calcium 7.8 MG/DL (8.5-10.1); Osmolality,Calculated 299.1 MOS/KG (273-304)
[2019-10-01 06:40] LABS: Band Neutrophils 1 % (0-10); Lymphocytes 5 % (20-55); Segmented Neutrophils 85 % (50-85); Total Cells Counted 100
[2019-10-01 06:41] LABS: Anisocytosis 1+; Ovalocytes 1+; Platelet Estimate Normal; Polychromasia Few
[2019-10-01] MEDS: ASPIRIN EC 81 MG TABLET PO SCH (08:02)
[2019-10-01] MEDS: carvediloL 3.125 MG TABLET PO SCH ×2 (08:02→20:01)
[2019-10-01] MEDS: FLUTICASONE 50 MCG NASAL SPRAY 16 GM BOTTLE BOTH NARES SCH ×2 (08:02→20:01)
[2019-10-01] MEDS: DOCUSATE SODIUM 100 MG CAPSULE PO SCH ×2 (08:02→20:01)
[2019-10-01] MEDS: allopurinoL 300 MG TABLET PO SCH (08:03)
[2019-10-01] MEDS: PANTOPRAZOLE 40 MG TABLET PO SCH (08:03)
[2019-10-01] MEDS: DEXAMETHASONE INJ 20 MG in SODIUM CHLORIDE 0.9% 50 ML IV SCH ×2 (10:13→21:15)
[2019-10-01] MEDS: SODIUM CHLORIDE 0.9% 1,000 ML IV SCH (14:24)
[2019-10-01] MEDS: DIGOXIN 0.125 MG TABLET PO SCH (14:24)
[2019-10-01] MEDS: ENOXAPARIN 30 MG/0.3 ML SYRINGE SUBCUT SCH (20:02)
[2019-10-01] MEDS: MORPHINE 4 MG/1 ML VIAL IV PRN (20:30)
[2019-10-02 06:35] LABS: Basophils % 0.1 % (0.0-0.8); Hematocrit 33.8 VOL% (35.7-47.0); Hemoglobin 10.6 GM/DL (12.0-16.0); Immature Granulocytes % 1.8 %; Immature Granulocytes Absolute 0.16 #; Lymphocytes # 0.7 10*3/uL (1.4-4.0); Lymphocytes % 7.3 % (21.3-54.2); Mean Corpuscular HGB Conc 31.4 GM/DL (32-36); Mean Corpuscular Volume 104.3 FL (87-102); Mean Platelet Volume 11.5 FL (9.6-12.0); Monocytes % 12.2 % (1.7-12.7); NRBC # 0.03 10*3/uL; Neutrophils % 78.6 % (38.7-73.9); Platelet Count 264 T/CUMM (130-400); Red Blood Count 3.24 MC/CUMM (3.8-5.5); Red Cell Distribution Width 19.8 % (9.3-17.3); White Blood Count 9.1 T/CUMM (4-12)
[2019-10-02 06:54] LABS: Albumin 2.3 G/DL (3.4-5.0); Bilirubin,Direct 0.87 MG/DL (0.0-0.20); Bilirubin,Indirect 0.6 MG/DL (0.0-1.0); Bilirubin,Total 1.5 MG/DL (0.2-1.0); Calcium 7.8 MG/DL (8.5-10.1); Osmolality,Calculated 318.1 MOS/KG (273-304); Total Protein 6.3 G/DL (6.4-8.3)
[2019-10-02] MEDS ORDERED: ACETAMINOPHEN 650 MG SUPP RECTAL PRN (07:41)
[2019-10-02] MEDS: fentaNYL 12 MCG/HR PATCH TRANSDERM SCH (08:03)
[2019-10-02] MEDS ORDERED: INSULIN REGULAR 100 UNIT/ML SUBCUT ONE (08:05)
[2019-10-02] MEDS ORDERED: DEXTROSE 10% 250 ML BAG IV ONE (08:06)
[2019-10-02] MEDS ORDERED: CALCIUM GLUCONATE 1,000 MG in SODIUM CHLORIDE 0.9% 100 ML IV ONE (08:30)
[2019-10-02] MEDS ORDERED: SODIUM BICARB INJ 50 MEQ in DEXTROSE 5% 1,000 ML IV SCH (08:30)
[2019-10-02] MEDS: FLUTICASONE 50 MCG NASAL SPRAY 16 GM BOTTLE BOTH NARES SCH (08:31)
[2019-10-02] MEDS: DOCUSATE SODIUM 100 MG CAPSULE PO SCH (08:31)
[2019-10-02] MEDS: DEXAMETHASONE INJ 20 MG in SODIUM CHLORIDE 0.9% 50 ML IV SCH ×2 (08:31→14:38)
[2019-10-02] MEDS: ASPIRIN EC 81 MG TABLET PO SCH (08:31)
[2019-10-02] MEDS: carvediloL 3.125 MG TABLET PO SCH (08:31)
[2019-10-02] MEDS: PANTOPRAZOLE 40 MG TABLET PO SCH (08:32)
[2019-10-02] MEDS: allopurinoL 300 MG TABLET PO SCH (08:35)
[2019-10-02] MEDS ORDERED: SODIUM BICARBONATE 50 MEQ/50 ML VIAL IV ONE (09:10)
[2019-10-02] MEDS: DEXTROSE 5% NACL 0.45% 1,000 ML IV SCH ×2 (09:23→09:40)
[2019-10-02] MEDS: SODIUM CHLORIDE 0.9% 1,000 ML IV SCH (09:24)
[2019-10-02] MEDS ORDERED: SODIUM BICARB IV ONE (09:30)
[2019-10-02] MEDS ORDERED: DEXTROSE 10% IV ONE (09:30)
[2019-10-02] MEDS ORDERED: INSULIN REGULAR IV ONE (09:30)
[2019-10-02 10:17] LABS: Band Neutrophils 1 % (0-10); Lymphocytes 6 % (20-55); Nucleated Red Blood Cells 1 (0-5); Segmented Neutrophils 83 % (50-85); Total Cells Counted 100
[2019-10-02 10:18] LABS: Macrocytosis Slight; Ovalocytes Few; Platelet Estimate Normal; Schistocytes Few
[2019-10-02 12:25] LABS: Apearance,Urine Slightly Hazy (Clear); Bacteria,Urine Many /HPF (Few); Bilirubin,Urine Negative (Negative); Blood, Urine Moderate mg/dL (Negative); Glucose,Urine (UA) Negative (Negative); Ketones,Urine 20 mg/dL (Negative); Nitrite,Urine Negative (Negative); Protein,Urine 30 MG/DL; RBC,Urine 6 /HPF (0-4); Squamous Epithelial Cell,Urine Occasional /HPF (0-10); Urine Color Yellow (Yellow); Urine Specific Gravity 1.015 (1.001-1.035); WBC,Urine 11 /HPF (0-6)
[2019-10-02] MEDS ORDERED: ATROPINE 1 % OPH SOLN 5 ML BOTTLE SL PRN (12:28)
[2019-10-02] MEDS: DIGOXIN 0.125 MG TABLET PO SCH (12:42)
[2019-10-02] MEDS ORDERED: LACTULOSE 320 GM/480 ML BOTTLE RECTAL SCH ×2 (14:00→15:00)
[2019-10-02] MEDS ORDERED: FUROSEMIDE 20 MG/2 ML VIAL IV ONE (14:57)
[2019-10-02] MEDS ORDERED: CEFEPIME 1,000 MG in SODIUM CHLORIDE 0.9% 100 ML IV SCH (15:00)
[2019-10-02] MEDS ORDERED: ALBUTEROL/IPRATROPIUM 3 ML NEB RESP TX PRN (15:46)
[2019-10-02] MEDS ORDERED: LACTULOSE 20 GM/30 ML UDCUP PO SCH (18:00)
[2019-10-02] MEDS ORDERED: ALBUTEROL/IPRATROPIUM 3 ML NEB RESP TX SCH (19:00)
[2019-10-02 22:30] VITALS: BP 64/31
== END 2019-10-02 20:56 | disposition expired | DRG 841 ==
LOC: N.ED 13:48 → SUATTDRO 19:04 → N.EDINP 19:04 → N.4E 20:36
PROVIDERS: ADMIT Internal Medicine; ATTEND Internal Medicine